=== PATIENT | female | born 1970 | race Caucasian/White ===

== ENCOUNTER 2019-01-16 17:00 | Emergency (ER) | payer SELFPAY | END 2019-01-16 18:43 | disposition home or self-care (01) | LOC: ERS 17:00 | DX: Z76.0 Encounter for issue of repeat prescription (principal); I10 Essential (primary) hypertension; J45.909 Unspecified asthma, uncomplicated; F32.9 Major depressive disorder, single episode, unspecified | CPT/HCPCS: 99281 ==

== ENCOUNTER 2019-02-12 06:38 | Inpatient (IN) | payer BC, SELFPAY ==
[2019-02-12] MEDS ORDERED: Fosphenytoin Sodium 500 mg/10 ml Vial ONE (08:01)
[2019-02-12] MEDS ORDERED: Fosphenytoin Sodium 100 mg/2 ml Vial ONE (08:01)
[2019-02-12 08:08] LABS: #Basophils 0.1 thou/uL (0.0-0.2); #Eosinphils 0.2 thou/uL (0.0-0.7); #Lymphocytes 1.1 thou/uL (1.20-3.40); #Monocytes 0.3 thou/uL (0.11-0.59); #Neutrophils 3.3 thou/uL (1.40-6.50); %Eosinophils 3.5 % (0.0-10.0); %Lymphocytes 22.5 % (21.0-51.0); %Monocytes 5.4 % (0.0-10.0); %Neutrophils 67.6 % (42.0-75.0); Hemoglobin 12.5 g/dL (12.0-16.0); Mean Corpuscular HGB CONC 33.7 g/dL (32.0-36.0); Mean Corpuscular Hemoglobin 30.3 pg (27.0-31.0); Mean Corpuscular Volume 90.1 fL (78.0-98.0); Mean Platelet Volume 8.6 fL (7.4-10.4); Platelet Count 238 thou/uL (130-400); RBC Distribution Width 11.5 % (11.5-14.5); Red Blood Cell (RBC) Count 4.14 mill/uL (4.20-5.40); White Blood Cell (WBC) Count 4.9 thou/uL (4.8-10.8)
[2019-02-12 08:22] LABS: Bilirubin Negative (Negative); Blood, Urine Negative (Negative); Clarity Clear (Clear); Glucose, Urine (Dipstick) Normal (Negative); Leukocyte Negative Leu/uL (Negative); Nitrite Negative (Negative); Protein, Urine (Dipstick) 10 mg/dL (Neg-Trace); Urobilinogen Normal mg/dL (Less than 2)
[2019-02-12 08:26] LABS: Pregnancy Test - Urine (BHCG) Negative (Negative); Pregu Control Background? CLEAR/WHITE (CLR/WHITE); Pregu Control Bar Appear? YES (CONTROL BAR); Specific Gravity 1.018 (1.002-1.036)
[2019-02-12 08:29] LABS: Amphetamine Not Detected (NotDetected); Barbiturates Screen Not Detected (NotDetected); Benzodiazepine Screen Not Detected (NotDetected); Cocaine Metabolite Screen Not Detected (NotDetected); Medtox Control Line Valid? VALID (VALID); Medtox Reader # READER 4; Methadone Not Detected (NotDetected); Methamphetamine Not Detected (NotDetected); Opiate Screen Not Detected (NotDetected); Oxycodone Screen Not Detected (NotDetected); Phencyclidine (PCP) Not Detected (NotDetected); THC/Cannabinoid Screen Not Detected (NotDetected); Tricyclic Screen Not Detected (NotDetected)
[2019-02-12 09:01] LABS: ALT (SGPT) 10 U/L (8-55); AST (SGOT) 20 U/L (5-34); Acetaminophen Less than 6.0 mcg/mL (10.0-30.0); Albumin 4.8 g/dL (3.5-5.0); Alcohol Less than 10 mg/dL (Less than 10); Alkaline Phosphatase 83 U/L (40-110); Anion Gap 12 mmol/L (10-20); BUN (Urea Nitrogen) 14 mg/dL (7.0-18.7); Bilirubin, Total 0.2 mg/dL (0.2-1.2); Calc. Creatinine Clearance 0 mL/min (70-130); Calcium 10.7 mg/dL (7.8-10.44); Carbon Dioxide 32 mmol/L (22-29); Chloride 99 mmol/L (98-107); Estimated GFR-MDRD 44; Globulin 3.7 g/dL (2.4-3.5); Glucose 119 mg/dL (70-105); Potassium 4.2 mmol/L (3.5-5.1); Protein, Total 8.5 g/dL (6.0-8.3); Salicylate Less than 8.0 mg/dL (15.0-30.0); Sodium 139 mmol/L (136-145)
[2019-02-12] MEDS ORDERED: Lorazepam 2 MG/ML VIAL ONE ×2 (09:58→13:13)
[2019-02-12] MEDS ORDERED: Propofol 1,000 MG/100 ML VIAL IV ONE (10:02)
[2019-02-12] MEDS ORDERED: Midazolam HCl 5 mg/ml Vial ONE (10:02)
[2019-02-12] MEDS ORDERED: Succinylcholine Chloride 20 MG/ML 10 ml SYRINGE FS ONE ×2 (10:02→10:11)
[2019-02-12] MEDS ORDERED: Rocuronium Bromide 10 MG/ML (10ML VIAL) ONE (10:14)
--- NOTE | 2019-02-12 10:39 | RAD ---
XR Chest 1 View HISTORY: Respiratory failure COMPARISON: 04/05/2009 FINDINGS: There is an endotracheal tube with tip just below the level of the clavicular heads. A naso gastric tube for nutrition consistent with with tip excluded from film. The heart size is normal. The lungs are well expanded without focal areas of consolidation, pneumothorax or pleural effusions.
--- NOTE | 2019-02-12 11:02 | CT ---
CT Brain WO Con: 02/12/2019 9:22 AM CLINICAL HISTORY: Seizure. COMPARISON: None. FINDINGS: Hemorrhage: None. Ventricular system: Normal in size and morphology for the patient's age. Cerebral parenchyma: Normal Midline shift: None. Mass: No mass effect. Calvarium: Normal. Visualized Paranasal sinuses: Clear. IMPRESSION: No acute intracranial abnormalities.
[2019-02-12 12:08] LABS: Actual Bicarbonate (HCO3a) 25.5 mEq/L (22-28); Analyzer IN Cardio ER; Base Excess (BEa) -0.6 mEq/L (-2.0 to +3.0); CO2 Tension 47.6 mmHg (35.0-45.0); Calcium, Ionized 1.19 mmol/L (1.12-1.30); Hemoglobin (Hb) 12.9 g/dL (12.0-16.0); O2 Tension (PaO2) 68.9 mmHg (80.0-100.0); Potassium - ABG Lab 3.26 mmol/L (3.70-5.30); pH, Arterial 7.35 (7.35-7.45)
[2019-02-12 12:09] LABS: Puncture Site RRA
[2019-02-12 13:09] LABS: Troponin I 0.028 ng/mL (< 0.028)
[2019-02-12] MEDS: Lactated Ringer's 1,000 ML IV SCH (14:05)
[2019-02-12] MEDS ORDERED: Ventilator Sedation Protocol 1 EACH FS SCH (14:38)
[2019-02-12] MEDS ORDERED: SYSTANE 3.5 GM TUBE EA EYE PRN (14:38)
[2019-02-12] MEDS ORDERED: Propofol BOLUS 1,000 MG/100 ML VIAL IV PRN (14:53)
[2019-02-12] MEDS ORDERED: fentaNYL Citrate/PF 2,000 MCG in Sodium Chloride 0.9% 60 ML IV SCH (14:53)
[2019-02-12] MEDS ORDERED: Lorazepam 2 MG/ML VIAL SLOW IVP PRN ×2 (14:53→16:29)
[2019-02-12] MEDS ORDERED: Propofol 1,000 MG/100 ML VIAL IV PRN (14:53)
[2019-02-12] MEDS ORDERED: Fentanyl BOLUS 250 ML IVPB PRN (14:53)
[2019-02-12] MEDS ORDERED: Morphine 2 MG/ML SYRINGE SLOW IVP PRN (14:53)
[2019-02-12] MEDS ORDERED: DISCONTINUE PREVIOUS NARCOTIC PAIN MEDICATIONS AND BENZODIAZEPINES FS SCH (14:53)
--- NOTE | 2019-02-12 15:36 | PDOC.FPRHP ---
- History of Present Illness Chief Complaint: Seizures History of Present Illness: 48 year old patient currently intubated, although sedation seems to have worn off as patient alert and able to answer some questions with a nod of the head. Most history obtained from patient's mother and son. Patient lives with a disabled friend. Per patient's mother, she went to the refrigerator around 5:00 AM to get something for her friend. The friend noted she was gone for an unusual amount of time, so she made her way to the kitchen and saw the patient on the floor with the refrigerator open. She called EMS who took patient to ED. ED states they witnessed two tonic clonic seizures, one at 7:30 AM and the other closer to 10:00 AM. ED physician states that the patient had a prolonged postictal state, so intubation was performed. Mother states that patient has had two seizures previously, one at 6 year of age and the other in 1989. Both times, patient was worked up in ED and sent home. Patient has never seen a neurologist or been on medications for seizures. Patient does have a remote history of opiate abuse. She is on suboxone currently. She had a bunion surgery two weeks ago and was prescribed opiates for pain control but opted not to take them given her history. Patient's mother states that patient has a thyroid issue, although she is not sure if its overactive or under active thyroid. She is also on a fluid pill and BP medication. She has asthma which is mostly exacerbated by allergies. During the interview, patient was able to shake her head yes when I asked if she was in pain. I was eventually able to ascertain that the source of her pain was in her chest. A stat EKG was ordered. No evidence of STEMI. Troponins have been negative x2. Patient became more agitated and sedation was titrated appropriately. I called patient's PCP, Dr. Wilson. Her staff was able to relay the medications she has been taking as of 01/21/2019 which was her last office visit. She is taking albuterol, qvar, Vit D, gabapentin, prair, cozar, and levothyroxine. They state that she had lamictal and prozac listed as historical drugs, but these have not been prescribed by Dr. Wilson. ED Course: Patient given ativan and phenobarbital in ED. She was then intubated and sedated. - Allergies/Adverse Reactions Allergies Allergy/AdvReac Type Severity Reaction Status Date / Time Penicillins Allergy Severe Hives Verified 02/12/19 17:21 - Home Medications Medication Instructions Recorded Confirmed Type ALButerol Sulfate [Ventolin] 3 ml NEB Q6HR PRN 02/13/19 02/13/19 History Albuterol Sulfate [Proair HFA] 2 puff INH Q6HR PRN 02/13/19 02/13/19 History Beclomethasone Dipropionate [Qvar 160 mcg IH BID 02/13/19 02/13/19 History Redihaler] Ergocalciferol (Vitamin D2) 50,000 unit PO Q7DAYS 02/13/19 02/13/19 History [Vitamin D2] Gabapentin 1,200 mg PO TID 02/13/19 02/13/19 History Levothyroxine Sodium 300 mcg PO DAILY 02/13/19 02/13/19 History Losartan Potassium [Cozaar] 100 mg PO DAILY 02/13/19 02/13/19 History Comments: Med list obtained from PCP, Dr. Wilson - History PMHx: HTN, Hypothyroidism, Asthma, Neuropathy PSHx: Right bunion surgery, bilateral knee surgery, appendectomy, tonsillectomy , hysterectomy, cholecystectomy, heart surgery (uncertain what kind; per mother had to do with an artery in her 20's) FHx: Father with DM Social: Patient lives with a disabled friend. She has a history of opiate abuse and is on suboxone. - Review of Systems ROS unobtainable: due to endotracheal tube - Vital signs BP: 147/102 HR: 112 RR: 28 Tmax: 100.1F Pox: 100% on MV with FiO2 60 Wt: 109 kg - Physical Exam -Constitutional: Alert and able to nod head yes/no in response to questions HEENT: PERRLA, EOMI, MMM -Heart: Tachycardia Lungs: CTAB -Lungs: Sedated and on ventilator Abdomen: soft, non-tender Skin: capillary refill <2 seconds Heme/Lymphatic: no unusual bruising or bleeding, no purpura, no petechia -Psychiatric: Unable to assess FMR H&P: Results - Labs Result Diagrams: 02/13/19 04:15 02/13/19 04:15 Lab results: WBC 4.9 thou/uL (4.8-10.8) 02/12/19 07:44 Hgb 12.5 g/dL (12.0-16.0) 02/12/19 07:44 Hct 37.3 % (36.0-47.0) 02/12/19 07:44 MCV 90.1 fL (78.0-98.0) 02/12/19 07:44 Plt Count 238 thou/uL (130-400) 02/12/19 07:44 Neutrophils % 67.6 % (42.0-75.0) 02/12/19 07:44 ABG pH 7.35 (7.35-7.45) 02/12/19 10:55 ABG pCO2 47.6 mmHg (35.0-45.0) H 02/12/19 10:55 ABG pO2 68.9 mmHg (80.0-100.0) L 02/12/19 10:55 Sodium 139 mmol/L (136-145) 02/12/19 07:44 Potassium 4.2 mmol/L (3.5-5.1) 02/12/19 07:44 Chloride 99 mmol/L (98-107) 02/12/19 07:44 Carbon Dioxide 32 mmol/L (22-29) H 02/12/19 07:44 BUN 14 mg/dL (7.0-18.7) 02/12/19 07:44 Creatinine 1.28 mg/dL (0.6-1.1) H 02/12/19 07:44 Glucose 119 mg/dL (70-105) H 02/12/19 07:44 Lactic Acid 2.0 mmol/L (0.5-2.2) 02/12/19 07:44 Calcium 10.7 mg/dL (7.8-10.44) H 02/12/19 07:44 Total Bilirubin 0.2 mg/dL (0.2-1.2) 02/12/19 07:44 AST 20 U/L (5-34) 02/12/19 07:44 ALT 10 U/L (8-55) 02/12/19 07:44 Alkaline Phosphatase 83 U/L (40-110) 02/12/19 07:44 Serum Total Protein 8.5 g/dL (6.0-8.3) H 02/12/19 07:44 Albumin 4.8 g/dL (3.5-5.0) 02/12/19 07:44 Urine Ketones Negative mg/dL (Negative) 02/12/19 08:05 Urine Blood Negative (Negative) 02/12/19 08:05 Urine Nitrite Negative (Negative) 02/12/19 08:05 Ur Leukocyte Esterase Negative Brandon/uL (Negative) 02/12/19 08:05 FMR H&P: A/P - Problem List (1) Seizure Current Visit: Yes Status: Acute Code(s): R56.9 - UNSPECIFIED CONVULSIONS (2) HTN (hypertension) Current Visit: Yes Status: Acute Code(s): I10 - ESSENTIAL (PRIMARY) HYPERTENSION (3) Hypothyroid Current Visit: Yes Status: Acute Code(s): E03.9 - HYPOTHYROIDISM, UNSPECIFIED (4) Asthma Current Visit: Yes Status: Acute Code(s): J45.909 - UNSPECIFIED ASTHMA, UNCOMPLICATED (5) Neuropathy Current Visit: Yes Status: Acute Code(s): G62.9 - POLYNEUROPATHY, UNSPECIFIED (6) At risk for abuse of opiates Current Visit: Yes Status: Acute Code(s): Z91.89 - OT PERSONAL RISK FACTORS , NOT ELSEWHERE CLASSIFIED - Plan 48 year old female found down at 5:00 AM this morning and noted to have several witnessed seizures with the last seizure resulting in a prolonged post-ictal state requiring intubation. Seizure-like activity - Patient with witnessed seizures down in ED. Prolonged post-ictal state requiring intubation, per ED physician. - Patient's sedation wore off down in ED and she was able to communicate with me and does not appear to be still seizing - Ativan PRN for seizures - Increased risk for aspiration pneumonia; no current evidence on CXR or physical exam - Seizure precautions - Will start Keppra - Neurology consulted; appreciate recs - Pulmonology consulted; appreciate recs - EEG ordered to assess for ongoing seizure activity - Questionable past history of seizures; two noted in distant past but mother reports patient never saw neurology and was never on medication; PCP, Dr. Wilson has on record that patient states she has been on lamictal in the past. Dr. Wilson is not prescribing that medication, however, so it is unclear if patient has been getting lamictal. - Prolactin mildly elevated at 26 - Lactic acid 2.0 Acute hypoxic respiratory failure - Satting 93% on MV with FIO2 60 - Wean MV as tolerated - ABG obtained after intubation; pH 7.35, pCO2 45, pO2 69 - CXR with no evidence of pneumonia, pneumonitis, fluid overload - Associated with tachycardia; concern for PE. Given low Well's score, will obtain D-dimer first. Chest pain - Patient able to communicate chest pain - Stat EKG showed sinus tachycardia, no STEMI - Troponin neg x2, trending - Given patient found down and has tachycardia, concern for PE. Will order D- dimer and if elevated consider CTA given GFR >30 but <45. Can also consider bilateral lower extremity dopplers to start. If troponin trends up in addition to elevated D-dimer and patient continues to be tachycardic and tachypneic, then would have a low threshold for ordering CTA HTN - Monitor BP - Start on Cozaar 100mg daily when tolerating PO Hypothyroidism - Start back on levothyroxine 300 mcg when tolerating PO - TSH WNL Asthma - Appears well controlled per patient's mother - Patient on qvar and proair per PCP; will restart qvar Opiate abuse history - On suboxone - Will check [place] BOOK REPAIRER Aware to confirm DVT PPX: SCD's and lovenox Code Status: Full Dispo: Admit to CCU. Pulm and Neurology consulted. FMR H&P: Upper Level - Plan Date/Time: 02/12/19 4641 I, [], have evaluated this patient and agree with findings/plan as outlined by university internship resident. Pertinent changes/additions are listed here. Addendum - Attending - Attending Attestation Date/Time: 02/12/19 7067 I personally evaluated the patient and discussed the management with Dr. Bob I agree with the History, Examination, Assessment and Plan documented above with any addition or exceptions noted below - 48 yo female with h/o hypothyroidism, asthma, HTN, and remote h/o seizure d/o presents after being found down by roommate. In ER patient had apparent sezure x 2 and was subsequently intubated for airway protection. Patient also on suboxone therapy due to h/o narcotic abuse in past. PMH?/PSH/Meds/SH reviewed and agree with resident's documentation. Afebrile VSS. Exam repeated by me and agree with resident's findings. Lab: WBC=4.9, H/H=12.5/37.3, Zg=687, K=4.2, Cl=99, CO2=32, BUN/Cr=14/1.28, UDS- negative, U/A- negative, CT brain-negative . A/P: 1) Seizures- Admit to ICU, Will load with Keppra. Obtain EEG. Consult neurology, 2) Hypothyroidism- continue synthroid, 3) HTN- will monitor BP and add meds as needed.
[2019-02-12 16:40] LABS: Hemoglobin A1c 5.8 % (4.0-6.0)
[2019-02-12] MEDS ORDERED: Doxycycline 100 MG CAP PO SCH (16:45)
[2019-02-12] MEDS ORDERED: Cefdinir 300 MG CAP PO SCH (16:45)
[2019-02-12] MEDS ORDERED: Buprenorphine 8mg/Naloxone 2mg per 1 FILM PO SCH (16:45)
[2019-02-12 16:57] LABS: Troponin I 0.169 ng/mL (< 0.028)
[2019-02-12 19:25] LABS: Troponin I 0.344 ng/mL (< 0.028)
[2019-02-12] MEDS ORDERED: Acetaminophen 325 MG TAB PO PRN (20:04)
[2019-02-12] MEDS ORDERED: Gabapentin 300 MG CAP PO SCH (21:00)
--- NOTE | 2019-02-12 21:06 | CON ---
DATE OF CONSULTATION: 02/12/2019 SERVICE: Pulmonary Medicine. REASON FOR CONSULTATION: ICU patient. HISTORY OF PRESENT ILLNESS: The patient is a 48-year-old white female with past medical history significant for remote abuse of narcotics. She has been on Suboxone for the past 10 years. She has been afraid to wean that any further. Either way, she has been clean off the street drugs for a period time. She previously abused hydrocodone. She had a recent bunionectomy. After this procedure, she was actually prescribed some narcotics. She took them for a period of 3 days, and turned the rest of the prescription back into her pain physician. Either way, she was in her usual state of health when she had abrupt onset of shaking episodes. She ended up having what was described as tonoclonic seizures, but she was able to interestingly follow commands throughout these events. We actually witnessed some of the shaking events on an EEG. With this, there was no obvious epileptiform activity. She cannot provide any additional elements of the history because she had been under the influence of sedation on the ventilator. She is able to follow some simple commands. She can wiggle her toes, put her thumbs up in the air, open and close her eyes, lift her head up off the bed on command. PAST MEDICAL HISTORY: 1. Seizure disorder, remote, not currently taking any medications. 2. History of opiate addiction. 3. Hypertension. 4. Asthma. PAST SURGICAL HISTORY: 1. Spinal stimulator surgery. 2. Appendectomy. 3. Hysterectomy. 4. Thoracotomy. 5. Bunionectomy of the right lower extremity. FAMILY HISTORY: Noncontributory. SOCIAL HISTORY: Negative for alcohol, tobacco, or illicit drug use currently. She has no exposures known to mom of chemicals, dust asbestos, or tuberculosis. ALLERGIES: PENICILLIN. MEDICATIONS: List of her inpatient medications was reviewed. No specific updates were made at this time. REVIEW OF SYSTEMS: The patient cannot provide review of systems because she is currently intubated and sedated. PHYSICAL EXAMINATION: VITAL SIGNS: Afebrile. She does have a current temperature of 100.1. Pulse 123, blood pressure 121/78, respirations 18, saturation 95% on 27% FiO2 and a PEEP of 5. GENERAL: The patient is intubated and sedated. HEENT: Normocephalic and atraumatic. Sclerae are white. Conjunctivae are pink. Oral mucosa is moist without lesions. Pupils are equal, round, and reactive. LUNGS: Wonderful air entry with no prolonged expiratory phase or wheezing present. There is no prolonged expiratory phase on mechanical ventilator waveform. HEART: Tachycardic. Regular. ABDOMEN: Soft, nontender, and nondistended. Bowel sounds are positive. MUSCULOSKELETAL: No cyanosis or clubbing. No pitting in the bilateral lower extremities. NEUROLOGIC: Grossly nonfocal. LABORATORY DATA: WBC 4.9, hemoglobin 12.5, platelets 238,000. PH 7.35, pCO2 47 , PO2 69, corresponding to a saturation of 93%. This is when she was on 60% FiO2. Creatinine 1.28. Basic metabolic profile and liver function studies are otherwise unremarkable. Calcium is 10.7. Prolactin 26, which comfortably falls within the upper limits of normal. TSH 1.3, troponin 0.028. Lactate 2.0. Urinalysis is unremarkable, test is negative. Urine drug screen is completely unremarkable. Acetaminophen, salicylates, and alcohol are negative. IMAGING DATA: 1. CT of the brain demonstrates no acute intracranial abnormality. 2. Chest x-ray demonstrates endotracheal tube is in good position, roughly 2 cm above the level of the richard. There is an enteric catheter that courses midline, but I cannot see the tip of it. Spinal stimulator is noted. No acute cardiopulmonary process is otherwise appreciated. ASSESSMENT: 1. Spell of undetermined etiology. 2. Acute hypoxic respiratory failure. 3. Cellulitis. 4. History of opiate dependence and abuse, remote. 5. Severe sepsis. DISCUSSION AND PLAN: I will put on some antibiotics directed at skin gabby. This will cover both strep and staph. We will give her a sedation holiday. If she meets criteria, her mentation is intact, extubation will be considered. I agree with empiric antiepileptic drugs while the dust settles for the time being. Pulmonary/Critical Care will continue to follow along while the patient remains in this location. CRITICAL CARE TIME: 30 minutes. Job ID: [id number] [facility]
[2019-02-12] MEDS: Ondansetron PF 4 MG/2 ML Vial IVP PRN (21:13)
[2019-02-12 23:24] LABS: Critical Call Chem Troponin I RESULT DECREASING; Troponin I 0.308 ng/mL (< 0.028)
[2019-02-12] MEDS ORDERED: Acetaminophen 650 MG Suppository PR PRN (23:51)
[2019-02-13] MEDS: Lactated Ringer's 1,000 ML IV SCH ×4 (03:32→21:22)
[2019-02-13 04:55] LABS: #Lymphocytes 1.1 thou/uL (1.20-3.40); #Monocytes 0.7 thou/uL (0.11-0.59); #Neutrophils 12.8 thou/uL (1.40-6.50); %Basophils 0.3 % (0.0-1.0); %Eosinophils 0.2 % (0.0-10.0); %Lymphocytes 7.3 % (21.0-51.0); %Monocytes 4.5 % (0.0-10.0); %Neutrophils 87.7 % (42.0-75.0); Hemoglobin 10.4 g/dL (12.0-16.0); Mean Corpuscular HGB CONC 33.7 g/dL (32.0-36.0); Mean Corpuscular Hemoglobin 30.5 pg (27.0-31.0); Mean Corpuscular Volume 90.4 fL (78.0-98.0); Mean Platelet Volume 7.4 fL (7.4-10.4); Platelet Count 252 thou/uL (130-400); RBC Distribution Width 11.6 % (11.5-14.5); Red Blood Cell (RBC) Count 3.41 mill/uL (4.20-5.40); White Blood Cell (WBC) Count 14.6 thou/uL (4.8-10.8)
[2019-02-13 05:16] LABS: ALT (SGPT) 12 U/L (8-55); AST (SGOT) 20 U/L (5-34); Albumin 3.6 g/dL (3.5-5.0); Alkaline Phosphatase 62 U/L (40-110); Anion Gap 10 mmol/L (10-20); BUN (Urea Nitrogen) 12 mg/dL (7.0-18.7); Bilirubin, Total 0.4 mg/dL (0.2-1.2); Calc. Creatinine Clearance 115 mL/min (70-130); Calcium 8.9 mg/dL (7.8-10.44); Carbon Dioxide 30 mmol/L (22-29); Chloride 99 mmol/L (98-107); Estimated GFR-MDRD 58; Globulin 2.8 g/dL (2.4-3.5); Glucose 114 mg/dL (70-105); Potassium 4.1 mmol/L (3.5-5.1); Protein, Total 6.4 g/dL (6.0-8.3); Sodium 135 mmol/L (136-145)
[2019-02-13 05:37] VITALS: BMI 41.4
--- NOTE | 2019-02-13 06:57 | PDOC.FM ---
- Subjective Subjective: Ms. Orantes has nausea and is vomiting this morning. Nurse giving antiemetic med. She tolerated extubation well and VSS. Cellulitis greatly improved. - Objective MAR Reviewed: Yes Vital Signs & Weight: Vital Signs (12 hours) Temp Pulse Ox 02/13/19 04:00 99.7 F H 02/13/19 00:12 92 L 02/12/19 23:00 101.1 F H 02/12/19 21:00 99.7 F H 02/12/19 20:00 101.6 F H 97 Weight Weight 110.1 kg Most Recent Monitor Data Heart Rate from ECG 80 NIBP 96/62 NIBP BP-Mean 73 Respiration from ECG 13 SpO2 99 I&O: 02/11/19 02/12/19 02/13/19 06:59 06:59 06:59 Intake Total 1913.7 Output Total 1600 Balance 313.7 Result Diagrams: 02/13/19 04:15 02/13/19 04:15 Phys Exam - Physical Examination Constitutional: NAD exam limited due to vomiting Respiratory: clear to auscultation bilateral Cardiovascular: RRR Gastrointestinal: soft Musculoskeletal: no edema no erythema of RLE, surgical incision healing well Neurological: moves all 4 limbs Psychiatric: normal affect Skin: normal turgor Dx/Plan (1) Cellulitis Code(s): L03.90 - CELLULITIS, UNSPECIFIED Status: Acute (2) Hypothyroid Code(s): E03.9 - HYPOTHYROIDISM, UNSPECIFIED Status: Acute (3) Neuropathy Code(s): G62.9 - POLYNEUROPATHY, UNSPECIFIED Status: Acute - Plan Plan: 48 year old female found down Sepsis 2/2 Cellulitis of RLE, improving - dramatic response to antibiotics. Received doxy and cefdninir. Cefdinir continued (02/12) DVT - d-dimer 9 - LE doppler showed nonocclusive DVT of R common femoral vein and prox and mid portions of R femoral vein - will start therapeutic lovenox - Has hx of prior DVT 20 years ago after period of immobility Concern for seizure like activity now not thought to be seizures - Patient with witnessed seizures down in ED. Prolonged post-ictal state requiring intubation, per ED physician. - Pulmonology consulted; appreciate recs - Questionable past history of seizures; two noted in distant past but mother reports patient never saw neurology and was never on medication; has been on lamictal but this reportedly for mood adjunct - was intubated for airway protection and extubated same day 02/12 Chest pain, resolved - EKG showed sinus tachycardia, no STEMI - Troponin neg HTN - Monitor BP - Patient denies taking prescribed cozaar Hypothyroidism - Continue home levothyroxine - TSH WNL Asthma - Appears well controlled per patient's mother - Patient on qvar and proair per PCP; will restart Opiate abuse history - On suboxone, continue DVT PPX: SCD's and lovenox Code Status: Full Dispo: Patient being transferred to floor. Continue oral abx and starting treatment for DVT. Addendum - Attending - Attending Attestation Date/Time: 02/13/19 1212 I personally evaluated the patient and discussed the management with Dr. Roland I agree with the History, Examination, Assessment and Plan documented above with any addition or exceptions noted below. Patient alert remote history of prior DVT , US with evidence for DVT will initiate therapeutic lovenox . Appreciate Pulmonary Critical recommendations. Patient will need to continue her current suboxone dose.
[2019-02-13] MEDS: Ondansetron PF 4 MG/2 ML Vial IVP PRN ×2 (07:16→21:15)
[2019-02-13] MEDS ORDERED: Albuterol Sulfate 2.5 mg/3 ml Neb NEB PRN (08:17)
[2019-02-13] MEDS ORDERED: PROVENTIL INHALER 6.7 G (200 INHALATIONS) INH PRN (08:17)
[2019-02-13] MEDS ORDERED: Levothyroxine 150 MCG TAB PO SCH (08:45)
[2019-02-13] MEDS ORDERED: Ergocalciferol 1.25 MG(50,000 UNITS) CAP PO SCH (09:00)
[2019-02-13] MEDS ORDERED: Enoxaparin Sodium 40 MG/0.4 ML SYRINGE SC SCH (09:00)
[2019-02-13] MEDS ORDERED: Buprenorphine 8mg/Naloxone 2mg per 1 FILM PO SCH (09:00)
[2019-02-13] MEDS ORDERED: Doxycycline 100 MG CAP PO SCH (09:00)
[2019-02-13] MEDS ORDERED: Promethazine 25 MG TAB PO PRN (09:04)
[2019-02-13] MEDS ORDERED: Promethazine HCl 25 MG/ML VIAL IM SCH (09:15)
[2019-02-13] MEDS: Cefdinir 300 MG CAP PO SCH ×2 (09:16→21:30)
--- NOTE | 2019-02-13 09:40 | PRG ---
DATE OF SERVICE: 02/13/2019 SERVICE: Pulmonary Medicine. INTERVAL HISTORY: The patient is doing absolutely outstanding from respiratory standpoint. She tolerated extubation just fine yesterday. There was no events overnight. She is a little bit groggy this morning, but otherwise, she is returning to her usual state of health slowly. Her hemodynamics have stabilized. Her heart rate is coming down, and her saturations are fine. She is on a little bit of oxygen still but otherwise, there are no interval change to her condition. PHYSICAL EXAMINATION: VITAL SIGNS: Afebrile currently with a T-max overnight of 101.6, pulse 92, blood pressure 157/106, respirations 19, and saturation 99%, currently on room air. GENERAL: The patient is awake and alert, in no apparent distress. LUNGS: Wonderful air entry. Rhonchi are present. No prolonged expiratory phase or wheezing appreciated. HEART: Normal rate and regular. ABDOMEN: Soft, nontender, and nondistended. Bowel sounds are positive. MUSCULOSKELETAL: No cyanosis or clubbing. No pitting in the bilateral lower extremities. NEUROLOGIC: Grossly nonfocal. LABORATORY DATA: WBC 14.6, hemoglobin 10.4, and platelets 252,000. D-dimer 9. A pH 7.35, pCO2 of 47, and PO2 of 68. Basic metabolic profile is unremarkable this morning. Liver function studies are normal. Troponin is downtrending to 0.308, procalcitonin 1.35. Hemoglobin A1c 5.8. Urinalysis is unremarkable. Urine drug screen is negative. ASSESSMENT: 1. Acute hypoxic respiratory failure, resolved. 2. Cellulitis of the right lower extremity, much improved. 3. Opiate dependence and abuse, remote. 4. Severe sepsis. 5. Suspected rigors that were treated as status epilepticus. DISCUSSION PLAN: The patient is doing wonderful from respiratory standpoint. At this point, she is stable for transition to the medical unit. I am going to discontinue the doxycycline as the culprit is likely Streptococcus species given how quickly it has regressed. IM dose of Phenergan will be provided and we will give her p.r.n. Phenergan as she is having a little bit of nausea. This may have been an effect of the doxycycline. The D-dimer is elevated. We will do an ultrasound of the right lower extremity to make certain that she does not have a DVT there. That being said, the likelihood for dealing with a PE that precipitated this presentation is quite low. Critical Care will follow for the time being. Job ID: [id number]
--- NOTE | 2019-02-13 10:55 | ULT ---
ULTRASOUND DOPPLER DUPLEX VENOUS BILATERAL LOWER EXTREMITIES: DATE: 02/13/2019 HISTORY: 48-year-old female with elevated d-dimer and history of DVT in right lower extremity. According to the rooming house operator, the "nurse and the doctor were in the room during the exam and were inf ormed of findings" TECHNIQUE: Grayscale, color-flow, and spectral analysis, of the bilateral common femoral, profunda femoral, grea ter saphenous, femoral, popliteal, and posterior tibial, veins. FINDINGS: Right: There is incomplete compressibility of the right common femoral vein, and the proximal and mid portio ns of the femoral vein. There is blood flow around the clot. No thrombosis of the right popliteal or posterior tibial veins. Left: There is no DVT in any of the veins of the left lower extremity.. IMPRESSION: Positive for nonocclusive deep venous thrombosis of right common femoral vein, and the proximal and m id portions of the right femoral vein.
[2019-02-13] MEDS ORDERED: Enoxaparin Sodium 80 MG/0.8 ML SYRINGE SC SCH (11:45)
[2019-02-13] MEDS: Gabapentin 300 MG CAP PO SCH ×3 (14:24→21:30)
[2019-02-13] MEDS: Mometasone 200 MCG HFA INHALER INH SCH (18:28)
[2019-02-13] MEDS ORDERED: Buprenorphine 8mg/Naloxone 2mg per 1 FILM SL SCH (21:00)
[2019-02-13] MEDS: lamoTRIgine 100 MG TAB PO SCH (21:30)
[2019-02-13] MEDS ORDERED: Promethazine HCl 12.5 MG in Sodium Chloride 0.9% 50 ML IVPB PRN (21:33)
[2019-02-13] MEDS: Enoxaparin Sodium 120 MG/0.8 ML SYRINGE SC SCH (23:07)
--- NOTE | 2019-02-14 | CON ---
DATE OF CONSULTATION: 02/13/2019 CONSULTING PHYSICIAN: Family Medicine Service. IMPRESSION: New onset seizure. PLAN: Continue Keppra 500 mg twice daily. HISTORY OF PRESENT ILLNESS: Ms. Orantes is a 48-year-old white female, who denies past history of any seizures. She presented with generalized tonoclonic seizures. Her CT scan of the brain was unremarkable. Her lab work was all unremarkable as well. Her tox screen was negative. Her EEG showed some generalized sharp and slow wave activity on one occasion during the study. She denies any use of cocaine, methamphetamines, or amphetamines. There is no history of head injuries, meningitis, encephalitis or concussions. PAST MEDICAL HISTORY: Otherwise unremarkable by her report. ALLERGIES: PENICILLIN. SOCIAL HISTORY: No tobacco or illicit drug use. FAMILY HISTORY: Noncontributory. REVIEW OF SYSTEMS: Ten-system review of systems is otherwise negative. PHYSICAL EXAMINATION: GENERAL: She is an overweight, middle-aged woman, lying in bed, in no acute distress. VITAL SIGNS: Stable. She is afebrile. Her EKG shows normal sinus rhythm. HEENT: Pupils equal and reactive. Conjunctivae clear. Oropharynx clear. Cranium, normocephalic and atraumatic. NECK: Supple. EXTREMITIES: No cyanosis, clubbing, or edema. NEUROLOGIC: She is alert and cooperative. Her speech is fluent and clear. Cranial nerves were intact. Motor exam showed equal strength. Sensation is intact to light touch. Gait was not tested. No abnormal movements were seen. SUMMARY: This is a middle-aged woman with new onset seizures. Her workup thus far has been unremarkable. I would continue the Keppra 500 mg twice daily. I will follow up with her in the office. Job ID: [id number]
[2019-02-14] MEDS: Cefdinir 300 MG CAP PO SCH ×2 (00:22→08:33)
[2019-02-14] MEDS: Gabapentin 300 MG CAP PO SCH ×3 (00:22→14:21)
[2019-02-14] MEDS: lamoTRIgine 100 MG TAB PO SCH (00:22)
[2019-02-14] MEDS ORDERED: Ibuprofen 600 MG TAB PO PRN (00:30)
[2019-02-14] MEDS: Lactated Ringer's 1,000 ML IV SCH (05:32)
[2019-02-14] MEDS ORDERED: Levothyroxine 150 MCG TAB PO SCH (06:00)
--- NOTE | 2019-02-14 06:30 | PDOC.FM ---
- Subjective Subjective: Pt states she is feeling better, but did not sleep well last night. She denies any CP, SOB. States her toe feels better, denies pain. - Objective MAR Reviewed: Yes Vital Signs & Weight: Vital Signs (12 hours) Temp Pulse Resp BP Pulse Ox 02/14/19 04:00 97.7 F 78 18 158/94 H 92 L 02/14/19 00:00 98.3 F 93 18 152/94 H 94 L 02/13/19 19:20 98.7 F 84 16 145/91 H 95 Weight Weight 110.762 kg Most Recent Monitor Data Heart Rate from ECG 94 NIBP 133/97 NIBP BP-Mean 109 Respiration from ECG 17 SpO2 94 I&O: 02/12/19 02/13/19 02/14/19 06:59 06:59 06:59 Intake Total 1913.7 651 Output Total 1600 755 Balance 313.7 -104 Result Diagrams: 02/13/19 04:15 02/13/19 04:15 Phys Exam - Physical Examination Constitutional: NAD HEENT: moist MMs, sclera anicteric Neck: no nodes, no JVD, supple Respiratory: no wheezing, no rales, no rhonchi, clear to auscultation bilateral Cardiovascular: RRR, no significant murmur, no rub Gastrointestinal: soft, non-tender, no distention, positive bowel sounds Musculoskeletal: pulses present R foot, surgical inicision healing, clean and dry, medial dorsal and distal Neurological: non-focal, moves all 4 limbs Psychiatric: normal affect, A&O x 3 Skin: no rash, normal turgor, cap refill <2 seconds Deviation from normal: slight erythema around surgical incision on R foot. Dx/Plan (1) Right femoral vein DVT Code(s): I82.411 - ACUTE EMBOLISM AND THROMBOSIS OF RIGHT FEMORAL VEIN Status : Acute (2) Asthma Code(s): J45.909 - UNSPECIFIED ASTHMA, UNCOMPLICATED Status: Acute (3) At risk for abuse of opiates Code(s): Z91.89 - OTH PERSONAL RISK FACTORS, NOT ELSEWHERE CLASSIFIED Status: Acute (4) HTN (hypertension) Code(s): I10 - ESSENTIAL (PRIMARY) HYPERTENSION Status: Acute (5) Hypothyroid Code(s): E03.9 - HYPOTHYROIDISM, UNSPECIFIED Status: Acute - Plan Plan: 48 year old female found down 1. Sepsis 2/2 Cellulitis of RLE, improving - dramatic response to antibiotics. Received doxy and cefdninir. Cefdinir continued (02/12) 2. DVT - d-dimer 9 - LE doppler showed nonocclusive DVT of R common femoral vein and prox and mid portions of R femoral vein - on therapeutic lovenox - Has hx of prior DVT 20 years ago after period of immobility 3. Concern for seizure like activity now not thought to be seizures - Patient with witnessed seizures down in ED. Prolonged post-ictal state requiring intubation, per ED physician. - Pulmonology consulted; appreciate recs - Questionable past history of seizures; two noted in distant past but mother reports patient never saw neurology and was never on medication; has been on lamictal but this reportedly for mood adjunct - was intubated for airway protection and extubated same day 02/12 4. Chest pain, resolved - EKG showed sinus tachycardia, no STEMI - Troponin neg 5. HTN - Monitor BP - Patient denies taking prescribed cozaar 6. Hypothyroidism - Continue home levothyroxine - TSH WNL 7. Asthma - Appears well controlled per patient's mother - Patient on qvar and proair per PCP; will restart 8. Opiate abuse history - On suboxone, continue DVT PPX: SCD's and lovenox Code Status: Full Dispo: Patient stable on floor. Continue oral abx and treatment for DVT.
[2019-02-14] MEDS: Mometasone 200 MCG HFA INHALER INH SCH (07:39)
[2019-02-14] MEDS ORDERED: levETIRAcetam 500 MG TAB PO SCH ×2 (10:15→21:00)
[2019-02-14] MEDS: Enoxaparin Sodium 120 MG/0.8 ML SYRINGE SC SCH (11:07)
--- NOTE | 2019-02-14 12:58 | PRG ---
DATE OF SERVICE: 02/14/2019 SERVICE: Pulmonary Medicine. INTERVAL HISTORY: The patient indicates that she is breathing comfortably and has no complaints of chest discomfort, fevers, or chills. Otherwise, there has been no interval change to her condition. Her blood pressure is firmed up very nicely. Her heart rate is starting to trend downward. Her appetite is back, and she was able to keep food down this morning without difficulties. PHYSICAL EXAMINATION: VITAL SIGNS: Afebrile, pulse 79, blood pressure 149/97, respirations 18, and saturation 98% on room air. GENERAL: The patient is awake and alert, in no apparent distress. LUNGS: Very good air entry with no prolonged expiratory phase or wheezing present. HEART: Normal rate, regular. ABDOMEN: Soft, nontender, and nondistended. Bowel sounds are positive. MUSCULOSKELETAL: No cyanosis or clubbing. There is no pitting in the bilateral lower extremities. The right lower extremity looks clean, dry, and intact. The erythema has still resolved. IMAGING: Ultrasound of the bilateral lower extremities demonstrates nonocclusive DVT of the right common femoral vein and the proximal midportion of the right femoral vein. ASSESSMENT: 1. Severe sepsis, resolved. 2. Cellulitis of the right lower extremity, resolving. 3. Acute hypoxic respiratory failure, resolved. 4. Deep venous thrombosis of the right lower extremity. 5. Rigors, resolved. DISCUSSION AND PLAN: The patient will require 6 months of anticoagulation for DVT. At this point, pursuing a CTA of the chest is not necessary as it will not change our course or duration of therapy. Since she is tolerating p.o., IV fluids will be interrupted. From my perspective, she is a candidate for discharge from the hospital as early as today. Lovenox will be interrupted, and we will initiate Eliquis. Once again, this will need to be continued for 6 months. Job ID: [id number]
--- NOTE | 2019-02-14 13:49 | PQF ---
DATE: 02-14-19 ATTN: DR. SARAHI HURST Please exercise your independent, professional judgment in responding to the clarification form. Clinical indicators are provided on the bottom of this form for your review Please check appropriate box(s) to clarify if the following diagnosis has been ruled in or ruled out: SEVERE SEPSIS [ ] Resolved In addition, please specify: Present on Admission (POA): [ * ] Yes For continuity of documentation, please document condition throughout progress notes and discharge summary. Thank You. CLINICAL INDICATORS - SIGNS / SYMPTOMS / LABS / RESULTS AND LOCATION IN MR: H&P 02-12-19: SEIZURE, HTN, HYPOTHYROID, ASTHMA, NEUROPATHY, AT RISK FOR ABUSE OF OPIATES, ACUTE HYPOXIC RESPIRATORY FAILURE CONSULT NOTE DR. MARINELLI 02-12-19: SPELL OF UNDETERMINED ETIOLOGY, ACUTE HYPOXIC RESPIRATORY FAILURE, CELLULITIS, SEVERE SEPSIS PN DR. MEZA 02-13-19: SEPSIS 2/2 CELLULITIS OF RLE CONSULT DR. MARINELLI 02-13-19: ACUTE HYPOXIC RESPIRATORY FAILURE, CELLULITIS OF THE RLE, SEVERE SEPSIS WBC: 02-12-19: 4.9 02-13-19: 14.6 TEMP: 02-12-19: 100.1, 100.1, 100.8, 100.8, 101.6, 101.1 PULSE: 02-12-19: 123, 121 BP: 02-12-19: 83/38 RR: 02-12-19: 28, 28 RISK FACTORS / RESULTS AND LOCATION IN MR: PN DR. MEZA 02-13-19: SEPSIS 2/2 CELLULITIS OF RLE TREATMENTS / RESULTS AND LOCATION IN MR: MAR: 02-13-19: OMNICEF PO MAR: 02-13-19: LR IVF (This form is maintained as a part of the permanent medical record) 2014 [employer]. All Rights Reserved [email or web address] [email or web address] Office: [phone] [facility]
--- NOTE | 2019-02-14 14:52 | EEG ---
Referring Physician: KEMI EEG # [id number] TEST TYPE: URGENT PORTABLE INPATIENT REPORT: AN EEG USING THE INTERNATIONAL TEN-TWENTY SYSTEM OF ELECTRODE PLACEMENT WAS PERFORMED. The waking background is a medium amplitude 9 hertz alpha frequency. The patient appeared to be awake throughout the study. Photic stimulation was unremarkable. A rare sharp and slow wave discharge was noted in a generalized distribution. IMPRESSION: THIS IS AN ABNORMAL STUDY FOR THE FINDINGS OF A SINGLE GENERALIZED EPILEPTIFORM DISCHARGE. CLINICAL CORRELATION IS INDICATED. Content Analyst: FRANK Tool Shaper Set Up Operator: [email or web address]
--- NOTE | 2019-02-14 16:32 | PRG ---
DATE OF SERVICE: 02/14/2019 Ms. Orantes looks and feels much better. She does have a DVT of the femoral vein, and we are switching her from Lovenox to Eliquis. In retrospect, I really do not believe this lady ever had severe sepsis. Job ID: [id number]
[2019-02-14 17:32] VITALS: BP 129/87; TEMP 98.8
[2019-02-14] MEDS ORDERED: Apixaban 5 MG TAB PO SCH (21:00)
--- NOTE | 2019-02-15 01:57 | PQF ---
DOMINIC SUMNER JOSEPH [id number] CLINICAL DOCUMENTATION CLARIFICATION FORM: POST DISCHARGE Addendum to original discharge summary date: ____ Late entry note date: __ DATE: 02/15/19 ATTN: Harpal Alcantar Please exercise your independent, professional judgment in responding to the clarification form. Clinical indicators are provided on the bottom of this form for your review In your clinical opinion based on clinical findings below, can you please identify etiology of Acute Respiratory Failure if due to : Please check appropriate box(s): [ ] Sepsis [ ] Seizure [ X ] Other condition, please specify__Meds given for suspected seizure... she did not have a seizure [ ] Unknown etiology [ ] Unable to determine In addition, please specify: Present on Admission (POA): [ ] Yes [ X ] No [ ] Unable to determine For continuity of documentation, please document condition throughout progress notes and discharge summary. Thank You. CLINICAL INDICATORS - SIGNS / SYMPTOMS / LABS Family Med H&P p1 02/12 Dr Bob 48 year old pt currently intubated, although sedation seems to have worn off as patient alert and able to answer some question Family Med H&P p1 02/12 Dr Bob ED physician states that the patient had a prolonged postictal state, so intubation was performed Family Med H&P p2 02/12 Dr Bob Vital sign: BP147/102, Heart rate 112, Resp rate 28, [id number] RISK FACTORS Family Med H&P p5 02/12 Seizure like activity Family Med H&P p5 02/12 Acute hypoxic Respiratory Failure Pulmonology consult p3 02/13 Cellulitis Pulmonology consult p3 02/13 Severe Sepsis TREATMENTS: JUN 03 Ativan JUN 03 Phenobarbital Respiratory Panel 02/12 Intubated and on Mechanical Ventilator Pulmonology consult 02/12 Harpal Alcantar (This form is maintained as a part of the permanent medical record) 2015 [employer]. All Rights Reserved [email or web address] [not provided] MTDD
--- NOTE | 2019-02-15 21:39 | DIS ---
DATE OF ADMISSION: 02/12/2019 DATE OF DISCHARGE: 02/14/2019 RESIDENT: Hailey Horton DO ADMITTING ATTENDING: Alesha Mccloud MD DISCHARGE ATTENDING: Roberto Carlos Flowers MD CONSULTS: 1. Neurology, Jethro Keller MD; PT/OT and Spiritual Care. 2. Pulmonology, Dr. Holloway. PROCEDURES PERFORMED: Left lower extremity Doppler, which showed a right common femoral DVT which was nonocclusive. Also intubation in the emergency department for a prolonged postictal state. DISCHARGE DIAGNOSES: 1. Sepsis secondary to cellulitis of right lower extremity. 2. Deep venous thrombosis of the right common femoral vein. 3. Seizure-like activity. 4. Chest pain. 5. Hypertension. 6. Hypothyroidism. 7. Asthma. 8. Opioid abuse disorder history. DISCHARGE MEDICATIONS: 1. Eliquis 10 mg p.o. b.i.d. for one week and Eliquis 5 mg p.o. b.i.d. for 3 months. 2. Albuterol sulfate inhaler. 3. QVAR redihaler b.i.d. 4. Suboxone 1 film SL at bedtime. 5. Cefdinir 300 mg p.o. b.i.d. for 7 more days, 15 capsules total. 6. Vitamin D2 of 50,000 units p.o. q.7 days. 7. Gabapentin 1200 mg p.o. t.i.d. 8. Lamotrigine 200 mg p.o. at bedtime. 9. Keppra 500 mg p.o. b.i.d. 10. Levothyroxine 300 mcg p.o. daily. HISTORY OF PRESENT ILLNESS/HOSPITAL COURSE: Ms. Orantes is a 48-year-old female with a history of asthma, hypothyroidism, hypertension, opioid abuse disorder, came into the emergency department after being found down. The patient was presumed to have a seizure and she was intubated in the ER for prolonged postictal state and fear to protect her airway. The patient was then admitted to the ICU for further care. Dr. Keller saw the patient, who recommended Keppra 500 mg p.o. b.i.d. and follow up outpatient. Dr. Holloway also was consulted and thought that patient's presentation is more consistent with sepsis and rigors from what appeared to be cellulitis on her right foot from the recent surgery that she had to repair bunion. The patient's surgery was done about two weeks ago by public interviewer, Dr. Laguna. The patient has been more mobile than normal as well. She also has a history of DVT in the past. The patient was found to have a right common femoral DVT and was started on therapeutic Lovenox. Upon discharge, she will have 7 days of 10 mg b.i.d. Eliquis and then switch to 5 mg b.i.d. of Eliquis for a total of 3 months. I went over this medication thoroughly with patient, as well as instructed the nurse to go over this with her again upon discharge. The patient improved greatly and moved over to the floor from the ICU after being extubated. The patient never had any blood cultures or urine culture. DISPOSITION: The patient was stable upon discharge. DISCHARGE INSTRUCTIONS: 1. Location: Home. 2. Diet: Heart healthy. 3. Activity: As tolerated. 4. Followup: Follow up with Dr. Keller in 2 weeks. Follow up with Dr. Laguna , public interviewer, on 02/17/2019 at 4:00 p.m. for postop appointment as well as suture removal. Follow up with Dr. Shazia Wilson, primary care physician or her PA appointment set up for 02/24/2019 at 1:40 p.m. to go over discharge medications , I called and left a message with Dr. Wilson's staff about the new medications of Keppra and Eliquis. Job ID: [id number] MTDD
--- NOTE | 2019-02-16 14:16 | EKG ---
Test Reason : STAT Blood Pressure : / mmHG Vent. Rate : 121 BPM Atrial Rate : 121 BPM P-R Int : 158 ms QRS Dur : 098 ms QT Int : 324 ms P-R-T Axes : 031 007 025 degrees QTc Int : 460 ms Sinus tachycardia Nonspecific ST abnormality Abnormal ECG When compared with ECG of 05-SEP-1996 12:58, Vent. rate has increased BY 50 BPM Confirmed by DOMINIC JOE (2) on 02/16/2019 2:16:23 PM Referred By: GENIA BROWN Confirmed By:DOMINIC JOE
== END 2019-02-14 17:23 | disposition home or self-care (01) | DRG 862 ==
LOC: ERS 06:38 → CCU 14:17 → T4-A 02-13 12:40
PROVIDERS: ADMIT Emergency Medicine; ATTEND Emergency Medicine
PROC: 5A1935Z Respiratory Ventilation, Less than 24 Consecutive Hours (ICD-10-PCS; principal; 2019-02-12)
PROC: 0BH17EZ Insertion of Endotracheal Airway into Trachea, Via Natural or Artificial Opening (ICD-10-PCS; 2019-02-12)
DX: T81.40XA Infection following a procedure, unspecified, initial encounter (principal); A41.9 Sepsis, unspecified organism; J96.01 Acute respiratory failure with hypoxia; R65.20 Severe sepsis without septic shock; L03.115 Cellulitis of right lower limb; I82.411 Acute embolism and thrombosis of right femoral vein; T81.44XA Sepsis following a procedure, initial encounter; E03.9 Hypothyroidism, unspecified; J45.909 Unspecified asthma, uncomplicated; F11.21 Opioid dependence, in remission; G40.909 Epilepsy, unspecified, not intractable, without status epilepticus; G62.9 Polyneuropathy, unspecified; Y83.8 Other surgical procedures as the cause of abnormal reaction of the patient, or of later complication, without mention of misadventure at the time of the procedure; T42.6X5A Adverse effect of other antiepileptic and sedative-hypnotic drugs, initial encounter; Z86.718 Personal history of other venous thrombosis and embolism; Z79.899 Other long term (current) drug therapy; Z88.0 Allergy status to penicillin; Z79.890 Hormone replacement therapy
CPT/HCPCS: 36415; 70450; 71045; 80053; 80306; 80307; 81003; 81025; 82805; 83036; 83605; 84145; 84146; 84443; 84484; 85025; 85379; 93005; 93010; 93970; 94002; 95816; 95819; J1650; J1953; J2060; J2250; J2405; J2550; J2704; Q0169; Q2009

== ENCOUNTER 2019-04-19 06:11 | Inpatient (IN) | payer BC ==
[2019-04-19 07:02] LABS: Bilirubin Negative (Negative); Blood, Urine Negative (Negative); Clarity Clear (Clear); Glucose, Urine (Dipstick) Normal (Negative); Leukocyte Negative Leu/uL (Negative); Nitrite Negative (Negative); Protein, Urine (Dipstick) 10 mg/dL (Neg-Trace); Urobilinogen Normal mg/dL (Less than 2)
[2019-04-19] MEDS ORDERED: Lorazepam 2 MG/ML VIAL ONE (07:07)
[2019-04-19 07:13] LABS: Amphetamine Not Detected (NotDetected); Barbiturates Screen Not Detected (NotDetected); Benzodiazepine Screen Not Detected (NotDetected); Cocaine Metabolite Screen Not Detected (NotDetected); Medtox Control Line Valid? VALID (VALID); Medtox Reader # READER 4; Methadone Not Detected (NotDetected); Methamphetamine Not Detected (NotDetected); Opiate Screen Not Detected (NotDetected); Oxycodone Screen Not Detected (NotDetected); Phencyclidine (PCP) Not Detected (NotDetected); THC/Cannabinoid Screen Not Detected (NotDetected); Tricyclic Screen Not Detected (NotDetected)
[2019-04-19] MEDS ORDERED: levETIRAcetam 1000 MG/100 ML PREMIX BAG ONE (07:30)
--- NOTE | 2019-04-19 08:37 | CT ---
CT BRAIN WITHOUT CONTRAST: COMPARISON: 02/12/2019. HISTORY: Altered mental status. Multiple falls. TECHNIQUE: Multiple contiguous axial images were obtained in a CT Of the brain without contrast. FINDINGS: The brain is normal in morphology and attenuation without focal lesions or confluent areas of infarct ion. There is no evidence of hydrocephalus, intracranial hemorrhage, or extraaxial fluid collection. The calvarium and overlying soft tissues are unremarkable. The visualized paranasal sinuses and mast oid air cells are well aerated. IMPRESSION: No evidence of acute intracranial abnormality. POS: [facility]
[2019-04-19] MEDS ORDERED: Ondansetron PF 4 MG/2 ML Vial ONE (08:46)
[2019-04-19 09:27] LABS: #Lymphocytes 0.7 thou/uL (1.20-3.40); #Monocytes 0.4 thou/uL (0.11-0.59); #Neutrophils 9.3 thou/uL (1.40-6.50); %Basophils 0.2 % (0.0-1.0); %Eosinophils 0.2 % (0.0-10.0); %Lymphocytes 6.4 % (21.0-51.0); %Monocytes 3.6 % (0.0-10.0); %Neutrophils 89.6 % (42.0-75.0); Hemoglobin 11.9 g/dL (12.0-16.0); Mean Corpuscular HGB CONC 33.4 g/dL (32.0-36.0); Mean Corpuscular Hemoglobin 29.8 pg (27.0-31.0); Mean Platelet Volume 8.5 fL (7.4-10.4); Platelet Count 227 thou/uL (130-400); RBC Distribution Width 12.8 % (11.5-14.5); White Blood Cell (WBC) Count 10.4 thou/uL (4.8-10.8)
[2019-04-19 10:12] LABS: ALT (SGPT) 7 U/L (8-55); AST (SGOT) 14 U/L (5-34); Albumin 4.2 g/dL (3.5-5.0); Alkaline Phosphatase 68 U/L (40-110); Anion Gap 18 mmol/L (10-20); BUN (Urea Nitrogen) 8 mg/dL (7.0-18.7); Bilirubin, Total 0.3 mg/dL (0.2-1.2); Calc. Creatinine Clearance 0 mL/min (70-130); Calcium 9.6 mg/dL (7.8-10.44); Carbon Dioxide 20 mmol/L (22-29); Chloride 107 mmol/L (98-107); Estimated GFR-MDRD 57; Globulin 3.2 g/dL (2.4-3.5); Glucose 115 mg/dL (70-105); Potassium 4.8 mmol/L (3.5-5.1); Protein, Total 7.4 g/dL (6.0-8.3); Sodium 140 mmol/L (136-145)
--- NOTE | 2019-04-19 10:12 | PDOC.FPRHP ---
- History of Present Illness Chief Complaint: fall at home with LOC History of Present Illness: 49 yo F presented to the ED after a fall and LOC at home. Pt's roommate witnessed the fall and stated that the pt struck her head during her fall. EMS stated up was poorly arousable upon arrival but was stable. During her ED admission pt had a head CT showing scalp swelling and bruising. Pt later had an approximately 30 second tonic clonic seizure. She received ativan and keppra loading dose. Mother reports that pt was admitted here 2 months ago for seizures and was intubated. Since then review of pharmacy records show pt has not been filling her keppra prescription and mother does not believe she has followed up with a neurologist. Mother notes that pt first had a seizure in 3rd grade but then none until a couple months ago and today. She has never been told the etiology of her seizures. ED Course: 4mg zofran, 1L NS, 1g Keppra, 2mg Ativan. CT head negative - Allergies/Adverse Reactions Allergies Allergy/AdvReac Type Severity Reaction Status Date / Time Penicillins Allergy Severe Hives Verified 02/12/19 17:21 - Home Medications Medication Instructions Recorded Confirmed Type Albuterol Sulfate [Proair HFA] 2 puff INH Q6HR PRN 02/13/19 04/19/19 History Buprenorphine HCl/Naloxone HCl 1 film SL BID 02/13/19 04/19/19 History [Suboxone SL Film] Ergocalciferol (Vitamin D2) 50,000 unit PO Q7DAYS 02/13/19 04/19/19 History [Vitamin D2] Gabapentin 1,200 mg PO TID 02/13/19 04/19/19 History Lamotrigine [lamoTRIgine] 200 mg PO HS 02/13/19 04/19/19 History Levothyroxine Sodium 300 mcg PO DAILY 02/13/19 04/19/19 History Apixaban [Eliquis] 5 mg PO BID #60 tablet 02/14/19 04/19/19 Rx - History PMHx: seizure disorder, thyroid, chronic back pain w/ TENS unit in place, HTN, asthma PSHx: TENS unit placement, Right bunion surgery, bilateral knee surgery, appendectomy, tonsillectomy, hysterectomy, cholecystectomy, heart surgery ( uncertain what kind; per mother had to do with an artery in her 20's) FHx: Mom and dad- HTN Social: No tobacco use or EtOH. Former drug use. Currently on soboxone. Has been taking it for at least 3 years per mom. Lives with a roommate with an apartment here in [place]. 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 PCP Yvette @ [facility] CODE STATUS: FULL CODE - Review of Systems ROS unobtainable: due to mental status (post-ictal & s/p antiepileptics) - Vital signs BP: 101/80 HR: 78 RR: 13 Tmax: Pox: 93% on RA Wt: 105 kg - Physical Exam -Constitutional: Listless, minimally arousable to sound and pain HEENT: no scleral icterus, MMM -HEENT: Pupils dilated and minimal sluggish reactivity Neck: supple Heart: RRR, normal S1/S2, no murmurs/rubs/gallops Lungs: CTAB, no respiratory distress Abdomen: soft, non-tender, bowel sounds present, no masses/distention Musculoskeletal: normal structure, normal tone -Neurological: Unable to currently assess due level of alertness - will repeat later once medications have worn off Skin: no rash/lesions, capillary refill <2 seconds Heme/Lymphatic: no unusual bruising or bleeding, no purpura -Psychiatric: Unable to assess FMR H&P: Results - Labs Result Diagrams: 04/19/19 09:15 04/19/19 09:15 Lab results: WBC 10.4 thou/uL (4.8-10.8) 04/19/19 09:15 Hgb 11.9 g/dL (12.0-16.0) L 04/19/19 09:15 Hct 35.6 % (36.0-47.0) L 04/19/19 09:15 MCV 89.0 fL (78.0-98.0) 04/19/19 09:15 Plt Count 227 thou/uL (130-400) 04/19/19 09:15 Neutrophils % 89.6 % (42.0-75.0) H 04/19/19 09:15 Urine Ketones Negative mg/dL (Negative) 04/19/19 06:43 Urine Blood Negative (Negative) 04/19/19 06:43 Urine Nitrite Negative (Negative) 04/19/19 06:43 Ur Leukocyte Esterase Negative Brandon/uL (Negative) 04/19/19 06:43 - Radiology Interpretation CT scan - head Status: report reviewed by me (No acute intracranial abnormalities. Focal scalp swelling.) FMR H&P: A/P - Problem List (1) Seizure disorder Current Visit: Yes Status: Acute Code(s): G40.909 - EPILEPSY, UNSP, NOT INTRACTABLE, WITHOUT STATUS EPILEPTICUS (2) Asthma Current Visit: No Status: Acute Code(s): J45.909 - UNSPECIFIED ASTHMA, UNCOMPLICATED (3) HTN (hypertension) Current Visit: No Status: Acute Code(s): I10 - ESSENTIAL (PRIMARY) HYPERTENSION (4) Hypothyroid Current Visit: No Status: Acute Code(s): E03.9 - HYPOTHYROIDISM, UNSPECIFIED (5) Neuropathy Current Visit: No Status: Acute Code(s): G62.9 - POLYNEUROPATHY, UNSPECIFIED (6) Right femoral vein DVT Current Visit: No Status: Acute Code(s): I82.411 - ACUTE EMBOLISM AND THROMBOSIS OF RIGHT FEMORAL VEIN - Plan Seizure Disorder - Witnessed seizure in ED - CT head negative for intracranial abnormality - Loaded 1g keppra - Continue 500 BID - level ordered, pharmacy reports non-compliance - Resume home lamictal, level ordered - Neurology consulted by ED - EEG ordered Right femoral DVT - Supposed to be taking eliquis, has not filled rx - Resume Eliquis 10mg BIDx 1 week, transition to 5mg BID following - No signs of extension of emboli HTN - Reported, not taking anything at home Hypothyroid - TSH level ordered - Resume home levothyroxine Asthma -Resume home meds. Chronic back pain -Resume home Gabapentin once more alert as on a very high dose. h/o opioid abuse -On suboxone BID which she HAS recently filled per pharmacy. Will resume while inpatient. Obesity -Encourage weight loss. Vitamin D deficiency - Will check level with AM labs & resume home meds if needed. Fluids: SL Abx: None Diet: HH, Low Na Code status: FULL DVT PPX: Eliquis GI PPX: None Dispo: Will admit to stroke unit for close monitoring overnight & resume anti- epileptics pending neurology recs & drug levels. FMR H&P: Upper Level - Pertinent history 49YOF with a reported PMH significant for a suspected seizure disorder, HTN, hypothyroidism, a recent LLE DVT (noncompliant with anticoagulation) and a remote h/o opioid drug use who presents to the ER via EMS for a reported witnessed seizure at home. History was obtained from the patients mother who was present at the bedside for the exam as the patient was post-ictal and s/p 2mg of IV Ativan and 1g of Keppra. Per the patients mother the patient was walking to the bathroom this AM and collapsed to the floor & began seizing. 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 Roommate did endorse LOC and patient hitting her head on the floor but no reported bowel or bladder incontinence per mom. Mom unsure if patient is compliant with her meds or if she sees a neurologist but says she was admitted here not too long ago for a seizure. States she had a seizure once when she was like 7YO but was never started on meds at that time & had a complete workup that was negative. Next time she seized was a few months ago before her last hospitalization as far as mom knows. - Pertinent findings Labs/Imaging: Brain CT: NAF UDS: negative REVIEW OF SYSTEMS: Unable to obtain 2/2 AMS from being post-ictal and receiving IV Ativan Vitals: BP: 101/80 HR: 78 RR: 13 Tmax: Pox: 93% on RA Wt: 105 kg PHYSICAL EXAMINATION: General: NAD, drowsy but arousable and answered some questions appropriately. HEENT: normal sclera, oral cavity without lacerations; Pupils fixed & dilated Neck: Supple. Full ROM. Heart/Cardiovascular System: RRR, Cap refill < 3 seconds, no rub, no murmur Lungs/Respiratory System: clear to auscultation bilaterally. No increased work of breathing. Room air. Abdomen/Gastro-Intestinal System: no abdominal tenderness, normal bowel sounds Extremities: Warm extremities. No cyanosis or edema. Neuro: Difficult to assess 2/2 being post-ictal & medicated; will reassess when more alert Psychiatry: See Neuro Skin: No lesions, rashes, or ulcers noted Musculoskeletal: Difficult to assess as noted in neuro exam - Plan Date/Time: 04/19/19 [id number] Erica Edwards, have evaluated this patient and agree with findings/plan as outlined by civil engineering intern resident. Pertinent changes/additions are listed here. 49YOF with a reported PMH significant for a suspected seizure disorder, HTN, hypothyroidism, a recent LLE DVT (noncompliant with anticoagulation) and a remote h/o opioid drug use who presents to the ER via EMS for a reported witnessed seizure at home who suffered a witnessed tonic-clonic seizure in the ED. #Tonic-clonic Seizure -Had a possible seizure at home resulting in her fall and a witnessed tonic- clonic seizure for ~30 seconds in the ED per the ER physician. -Per chart review patient was recently admitted in January for seizure-like activity and was started on PO Keppra by Neurology and was supposed to f/u with them as an outpatient. Will touch base with Neurology today to see if patient ever did & to get further recs. Highly unlikely as phone call to pharmacy revealed patient has not recently filled almost all of her home meds and/or meds she was discharged on in January. Suspect a primary seizure disorder given her history but will r/o any possible organic causes that have not already been evaluated. UDS & bran CT negative. CMP pending. Will also check Mg , phos, TSH, lamictal, & keppra levels & treat any derangements accordingly based on results. -s/p 1g IV Keppra and 2mg Ativan in the ED so will resume normal home meds per d /c summary meds, pharmacy confirmation, & Neuro recs. -Will monitor closely on stroke unit w/ Q4H neurochecks and do a more thorough neuro exam later today once more awake & alert. #h/o recent LLE DVT -Per recent dc summary patient was discharged on Eliquis but only picked up the 10mg BID course. Will start on 5mg BID & continue for 3 months as her recent dc instructions noted. #Hypothyroidism -Has script for 300mcg synthroid at pharmacy that has not been filled since December of 2018. Will check a TSH & dose synthroid accordingly based on TSH & weight. #HTN -Patient never picked up recently ordered script for losartan 100mg QD per pharmacy. Will monitor closely & start antihypertensive therapy PRN based on inpatient BP reads. #Asthma -Resume home meds. #Chronic back pain -Resume home Gabapentin once more alert as on a very high dose. #h/o opioid abuse -On suboxone BID which she HAS recently filled per pharmacy. Will resume while inpatient. #Obesity -Encourage weight loss. #Vitamin D deficiency - Will check level with AM labs & resume home meds if needed. Fluids: SL Abx: None Diet: HH, Low Na Code status: FULL DVT PPX: Eliquis GI PPX: None Dispo: Will admit to stroke unit for close monitoring overnight & resume anti- epileptics pending neurology recs & drug levels. Addendum - Attending - Attending Attestation Date/Time: 04/19/192031 I personally evaluated the patient at 1730 and discussed the management with Dr. Ko/Wojciech. I agree with the History, Examination, Assessment and Plan documented above with any addition or exceptions noted below. At the time of my exam patient was drowsy (from anti-nausea meds) but A&O x 3, neuro without focal deficits. Fall with LOC- ct neg for intracranial path. Seizure- loaded with keppra and now on maintenance dose- questionable compliance - will f/u further tomorrow. Will get neuro input tomorrow as well. h/o recent DVT- non-compliance with anticoag due to cost- will restart NOAC and get CM to help with funding.
[2019-04-19] MEDS ORDERED: Ondansetron PF 4 MG/2 ML Vial IVP PRN (12:21)
[2019-04-19] MEDS ORDERED: Acetaminophen 325 MG TAB PO PRN ×2 (12:21→12:25)
[2019-04-19] MEDS ORDERED: Ondansetron ODT 4 MG TAB SL PRN (12:21)
[2019-04-19] MEDS ORDERED: Lorazepam 2 MG/ML VIAL SLOW IVP PRN (12:25)
[2019-04-19] MEDS ORDERED: PROVENTIL INHALER 6.7 G (200 INHALATIONS) INH PRN (12:25)
[2019-04-19 12:34] VITALS: BMI 38.2
[2019-04-19 13:22] LABS: Magnesium 1.8 mg/dL (1.6-2.6); Phosphorus 2.3 mg/dL (2.3-4.7)
[2019-04-19 13:22] LABS: Acetaminophen Less than 6.0 mcg/mL (10.0-30.0); Alcohol Less than 10 mg/dL (Less than 10); CK (CPK) 149 U/L (29-168); Salicylate Less than 8.0 mg/dL (15.0-30.0)
[2019-04-19] MEDS ORDERED: Ondansetron PF 4 MG/2 ML Vial SLOW IVP SCH (14:45)
[2019-04-19] MEDS: Mometasone 200 MCG HFA INHALER INH SCH (20:20)
[2019-04-19] MEDS ORDERED: Promethazine HCl 25 MG in Sodium Chloride 0.9% 50 ML IVPB PRN (20:22)
[2019-04-19] MEDS ORDERED: Non-Formulary Item 1 EACH (Lamotrigine [Lamotrigine] 200 MG) PO SCH (21:00)
[2019-04-19] MEDS ORDERED: levETIRAcetam 500 MG TAB PO SCH ×2 (21:00)
[2019-04-19] MEDS ORDERED: BECLOMETHASONE DIPROPIONATE 160 MCG IH SCH (21:00)
[2019-04-19] MEDS: Apixaban 5 MG TAB PO SCH (21:57)
[2019-04-19] MEDS: lamoTRIgine 100 MG TAB PO SCH (21:57)
[2019-04-19] MEDS: Buprenorphine 8mg/Naloxone 2mg per 1 FILM SL SCH (22:01)
[2019-04-20 05:05] LABS: Anion Gap 15 mmol/L (10-20); BUN (Urea Nitrogen) 8 mg/dL (7.0-18.7); Calc. Creatinine Clearance 133 mL/min (70-130); Calcium 9.2 mg/dL (7.8-10.44); Carbon Dioxide 26 mmol/L (22-29); Chloride 103 mmol/L (98-107); Estimated GFR-MDRD 70; Glucose 98 mg/dL (70-105); Potassium 3.6 mmol/L (3.5-5.1); Sodium 140 mmol/L (136-145)
--- NOTE | 2019-04-20 05:35 | PDOC.FM ---
- Subjective Subjective: NAEO. No seizures on the floor overnight. Patient failed bedside swallow study so was made strictly NPO overnight but alert and taking sips without issues this AM. Has no complaints this AM. Doesn't remember much from yesterday. But oriented to person, place, time, & situation with just slight confusion on what day it is but knew the year. - Objective MAR Reviewed: Yes Vital Signs & Weight: Vital Signs (12 hours) Temp Pulse Resp BP BP Pulse Ox 04/20/19 04:00 98.2 F 53 L 16 119/61 92 L 04/19/19 23:26 98.9 F 73 16 148/77 H 99 04/19/19 19:27 98.4 F 80 16 148/72 H 97 Weight Weight 104.326 kg Result Diagrams: 04/19/19 09:15 04/20/19 04:47 Phys Exam - Physical Examination Constitutional: NAD HEENT: moist MMs Neck: supple Respiratory: no wheezing, no rales, no rhonchi, clear to auscultation bilateral Cardiovascular: RRR, no significant murmur Gastrointestinal: soft, positive bowel sounds Musculoskeletal: no edema, pulses present Neurological: non-focal, moves all 4 limbs Psychiatric: normal affect, A&O x 3 Skin: no rash, normal turgor Dx/Plan (1) Seizure disorder Code(s): G40.909 - EPILEPSY, UNSP, NOT INTRACTABLE, WITHOUT STATUS EPILEPTICUS Status: Acute (2) Asthma Code(s): J45.909 - UNSPECIFIED ASTHMA, UNCOMPLICATED Status: Acute (3) HTN (hypertension) Code(s): I10 - ESSENTIAL (PRIMARY) HYPERTENSION Status: Acute (4) Hypothyroid Code(s): E03.9 - HYPOTHYROIDISM, UNSPECIFIED Status: Acute (5) Neuropathy Code(s): G62.9 - POLYNEUROPATHY, UNSPECIFIED Status: Acute (6) Right femoral vein DVT Code(s): I82.411 - ACUTE EMBOLISM AND THROMBOSIS OF RIGHT FEMORAL VEIN Status : Acute - Plan Plan: 49YOF with a reported PMH significant for a suspected seizure disorder, HTN, hypothyroidism, a recent RLE DVT (noncompliant with anticoagulation) and a remote h/o opioid drug use who presents to the ER via EMS for a reported witnessed seizure at home who suffered a witnessed tonic-clonic seizure in the ED. #Tonic-clonic Seizure -Had a possible seizure at home resulting in her fall and a witnessed tonic- clonic seizure for ~30 seconds in the ED per the ER physician. -Per chart review patient was recently admitted in January for seizure-like activity and was started on PO Keppra by Neurology and was supposed to f/u with them as an outpatient. Will touch base with Neurology this AM to see if patient ever did & to get further recs. -No seizure activity overnight w/ therapeutic keppra level noted just over 14. Will continue home Keppra & lamictal pending Neuro recs. -Will continue to monitor closely on stroke unit. #h/o recent RLE DVT -Continue Eliquis 10mg BID x 1 week. Then 5mg BID for at least 3 months minimum. #Hypothyroidism - TSH WNLs. Will continue synthroid 300mcg QD. #HTN -Patient never picked up recently ordered script for losartan 100mg QD per pharmacy. Will monitor closely & start antihypertensive therapy PRN based on inpatient BP reads. #Asthma -Resume home meds. #Chronic back pain -Resume home Gabapentin once more alert. #h/o opioid abuse -Will continue home suboxone BID. #Obesity -Encourage weight loss. #Vitamin D deficiency - Very low at 8.5. Will resume Q7 day dosing. Fluids: SL Abx: None Diet: HH, low Na Code status: FULL DVT PPX: Eliquis GI PPX: None Dispo: Will continue close monitoring on stroke unit pending neurology recs today. Addendum - Attending - Attending Attestation Date/Time: 04/20/19 1310 I personally evaluated the patient at 0750 am and discussed the management with Dr. Jeffrey. I agree with the History, Examination, Assessment and Plan documented above with any addition or exceptions noted below. Seizure d/o- unsure of patients compliance with her home meds of keppra. She didn't follow-up with neuro. Appreciate neuro recs. Recurrent DVT- did not take eliquis as prescibed. Restarted. Will work with CM to get meds as cheap as possible for increased compliance.
[2019-04-20] MEDS: Mometasone 200 MCG HFA INHALER INH SCH ×2 (06:54→20:33)
[2019-04-20] MEDS: Levothyroxine 150 MCG TAB PO SCH (07:34)
[2019-04-20] MEDS: levETIRAcetam 500 MG TAB PO SCH ×2 (08:57→20:48)
[2019-04-20] MEDS: Apixaban 5 MG TAB PO SCH ×2 (08:57→20:48)
[2019-04-20] MEDS ORDERED: LEVOTHYROXINE SODIUM 300 MCG PO SCH (09:00)
[2019-04-20] MEDS ORDERED: Ergocalciferol 1.25 MG(50,000 UNITS) CAP PO SCH (09:00)
[2019-04-20] MEDS: Buprenorphine 8mg/Naloxone 2mg per 1 FILM SL SCH ×2 (10:32→20:48)
--- NOTE | 2019-04-20 10:59 | CON ---
DATE OF TELEMEDICINE CONSULTATION: 04/20/2019 CHIEF COMPLAINT: Seizures. HISTORY OF PRESENT ILLNESS: The patient is a 49-year-old lady, who was brought to the ER unresponsive and then she had a subsequent seizure, so the thought process on admission was that she was having multiple seizures. The patient is now awake and is back to baseline. She reports she had seizures as a small child. The last seizure was at about 7 years of age. She has never had seizures into adulthood. Yesterday, was the first time she had a seizure again. She had no recent infection or any other illness. She is on Lamictal from Psychiatry for bipolar disorder. PREVIOUS MEDICAL HISTORY: Bipolar disorder, remote history of seizures, and bronchial asthma. 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 She had back surgery and spinal cord stimulator placement and tonsillectomy. She does not know the details of her spinal cord stimulator. FAMILY HISTORY: Parents are in their 70s. Her father has diabetes, hypertension, and other medical issues. Mother is healthy. The patient has 2 sisters, 48 and 46. They are both healthy as well. She does not have any children. SOCIAL HISTORY: She is a nonsmoker. She does not drink alcohol. 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 REVIEW OF SYSTEMS: PULMONARY: Negative for shortness of breath. GI: Negative for nausea, vomiting, or diarrhea. NEUROLOGIC: Positive for seizures. DERMATOLOGIC: Negative for any skin lesions. HEMATOLOGIC: Negative for bleeding diathesis. GENITOURINARY: Negative for any urinary issues. OPHTHALMOLOGIC: Negative for any vision symptoms. LABORATORY DATA: White count 10.4, hemoglobin 11.9, hematocrit 35.6, platelet count 227. Urine toxicology is negative for any drugs. Chemistry; sodium 140, potassium 3.6, chloride 103, bicarb 26, BUN 8, creatinine 0.86, glucose 98. CPK 149. Prolactin not available. TSH 1.76. ALT 7, AST 14, alkaline phosphatase 68. Her CT of the head was negative for any acute intracranial lesions and this was performed on admission yesterday. PHYSICAL EXAMINATION: VITAL SIGNS: Temperature 98.5, pulse 61, respiratory rate 16, O2 saturations 96 %, blood pressure 127/68. GENERAL APPEARANCE: Slightly obese, well-built, well-nourished lady, who is comfortable. CHEST: Clear vesicular breathing. CARDIOVASCULAR: S1 and S2 heard. No murmurs. ABDOMEN: Soft. NEUROLOGIC: Higher intellectual functions normal. Orientation to time, place, and person. Appropriate conversation. Cranial nerves 2 through 12, normal extraocular movements, and normal sensation of face bilaterally. Pupils 2 mm bilaterally. Normal extraocular movements and tongue midline. Normal elevation of palate. Normal hearing to finger rub bilaterally. Motor examination, bulk normal. Tone normal. Strength 5/5 throughout in iliopsoas, hamstrings, quadriceps, ankle dorsiflexion, plantarflexion bilaterally; deltoid, biceps, triceps, wrist extension and flexion, finger extension and flexion bilaterally. Deep tendon reflexes 2+ throughout in upper and lower extremities. Sensory normal to touch bilaterally and cerebellar normal [id number] and [id number]. IMPRESSION: The patient is a 49-year-old lady with remote history of seizure. She presents currently with history of 2 to 3 seizures at this admission and her examination is normal at this time and we are unable to unfortunately obtain an MRI scan because of her spinal cord stimulator. She is insisting she would like to go home because of fear of a job loss. I discussed at this time diagnosis is most consistent with recurrence of seizure disorder. RECOMMENDATIONS: I discussed with the nurse to speak to the patient and maybe give her a doctor's note, so she can return to work when she is discharged. From a neurology standpoint, she can be discharged tomorrow morning with plans for followup with Dr. Keller. Please call me if you have any further questions. Job ID: [id number] MTDD
[2019-04-20] MEDS: lamoTRIgine 100 MG TAB PO SCH (20:48)
[2019-04-20] MEDS ORDERED: Gabapentin 400 MG CAP PO SCH (21:30)
[2019-04-21 04:53] LABS: Hemoglobin 11.1 g/dL (12.0-16.0); Platelet Count 208 thou/uL (130-400)
[2019-04-21] MEDS: Levothyroxine 150 MCG TAB PO SCH (05:25)
--- NOTE | 2019-04-21 06:24 | PDOC.FM ---
- Subjective Subjective: Doing well this morning. No overnight events. No seizures since admission. She spoke with and reports she will be able to afford Keppra and Eliquis. Denies vision changes, headache. - Objective MAR Reviewed: Yes Vital Signs & Weight: Vital Signs (12 hours) Temp Pulse Resp BP BP Pulse Ox 04/21/19 04:00 98 F 48 L 16 114/62 96 04/21/19 00:00 99.8 F H 58 L 16 133/65 95 04/20/19 20:33 58 L 12 96 04/20/19 20:00 98.4 F 65 16 138/75 98 Weight Weight 104.326 kg Result Diagrams: 04/21/19 04:40 04/20/19 04:47 Phys Exam - Physical Examination Constitutional: NAD HEENT: moist MMs Neck: supple Respiratory: no wheezing, clear to auscultation bilateral Cardiovascular: RRR, no significant murmur Gastrointestinal: soft, non-tender Neurological: non-focal, moves all 4 limbs Psychiatric: normal affect, A&O x 3 Skin: normal turgor Dx/Plan - Plan Plan: 49yo female with pmh of suspected seizure disorder, HTN, hypothyroidism, a recent RLE DVT (noncompliant with anticoagulation) and a remote h/o opioid drug use admitted for seizures Tonic-clonic Seizure - Noncompliant with Keppra, has not followed up outpt with Neurology - Continue seizure precautions - Unable to do MRI due to spine stimulator - Continue home Keppra & lamictal - Neuro consulted, apprec recs - Likely d/c home later today h/o recent RLE DVT - Continue Eliquis 10mg BID x 1 week. Then 5mg BID for at least 3 months minimum Hypothyroidism - Continue synthroid 300mcg QD HTN - Patient never picked up recently ordered script for losartan 100mg QD per pharmacy - Continue to monitor BPs & start antiHTN therapy based on BP reads Asthma - Resume home meds Chronic back pain - Continue home Gabapentin h/o opioid abuse - Continue home suboxone BID Obesity Vitamin D deficiency - Very low at 8.5 - Continue Q7 day dosing Code status: FULL DVT PPX: Eliquis Addendum - Attending - Attending Attestation Date/Time: 04/21/19 1222 I personally evaluated the patient and discussed the management with Dr. Lambert. I agree with the History, Examination, Assessment and Plan documented above with any addition or exceptions noted below. Patient doing well. Undergoing EEG at this time. Likely discharge after completing that. She has rx assistance that has been provided by [facility].
[2019-04-21 07:38] VITALS: BP 132/75; TEMP 98.2
[2019-04-21] MEDS: Mometasone 200 MCG HFA INHALER INH SCH (08:01)
[2019-04-21] MEDS ORDERED: Gabapentin 400 MG CAP PO SCH (09:00)
[2019-04-21] MEDS: Apixaban 5 MG TAB PO SCH (11:15)
[2019-04-21] MEDS: Buprenorphine 8mg/Naloxone 2mg per 1 FILM SL SCH (11:16)
[2019-04-21] MEDS: levETIRAcetam 500 MG TAB PO SCH (11:18)
--- NOTE | 2019-04-21 18:36 | DIS ---
DATE OF ADMISSION: 04/19/2019 DATE OF DISCHARGE: 04/21/2019 RESIDENT: Niesha Lambert, PGY-2. ADMITTING ATTENDING: Gabriella Gutierrez MD DISCHARGE ATTENDING: Macario Dodson MD. CONSULT: Neurology. PROCEDURES: 1. Brain CT on 04/22/2019, no evidence of acute intracranial abnormality. 2. EEG read pending at this time. PRIMARY DIAGNOSES: 1. Tonic clonic seizure. 2. History of recent right lower extremity deep vein thrombosis. SECONDARY DIAGNOSES: 1. Hypothyroidism. 2. Hypertension. 3. Asthma. 4. Chronic back pain. 5. History of opioid abuse. 6. Obesity. 7. Vitamin D deficiency. DISCHARGE MEDICATIONS: 1. Eliquis 10 mg b.i.d. x7 days followed by 5 mg b.i.d. thereafter. 2. Tylenol 650 q.4 hours p.r.n. 3. ProAir two inhalations q.6 hours p.r.n. 4. Nitro one film sublingual b.i.d. 5. Vitamin D2 of 50,000 units q.7 days. 6. Drisdol 1.25 mg q.7 days. 7. Gabapentin 1200 mg t.i.d. 8. Lamotrigine 200 mg at bedtime. 9. Keppra 500 mg b.i.d. 10. Levothyroxine 300 mcg daily. DISCONTINUED MEDICATIONS: QVAR. HISTORY OF PRESENT ILLNESS/HOSPITAL COURSE: Ms. Orantes is a 49-year-old female who presented to the ED after a fall and loss of consciousness at home. She was brought in by EMS and had witnessed 30-second tonic-clonic seizure. In the ER, she received Ativan and Keppra loading doses. Two months ago, she was admitted for seizures as well and was intubated during this time. During this hospitalization, she had a DVT and was discharged on Eliquis, however, had not picked up Keppra or Eliquis, this was due to financial reasons. In the ED, she also received 1 L normal saline and 4 mg of Zofran. Her CT of the head was unremarkable. Neurology was consulted and an EEG was performed which is pending at this time. From a Neurology standpoint, she is cleared for discharge. For her history of right femoral DVT, she is supposed to be taking Eliquis, however, had not been taking it. Case Management was consulted for medication apposition and plans for her to sampler pickup the Eliquis and Keanjanara after discharge. In regard to her hypothyroidism, asthma, chronic back pain, history of opioid abuse, and vitamin D deficiency, she was resumed on home medications and these are stable throughout the course of her hospitalization. Her vitamin D level was checked, and very low at 8.5, this is likely due to noncompliance. Home dose was resumed. DISPOSITION: Stable. DISCHARGE INSTRUCTIONS: 1. Location: Home. 2. Diet: Regular. 3. Activity: No restrictions. 4. Follow up with Dr. Keller, Neurology outpatient within 7 days and PCP, Dr. Shazia Wilson within 7 days. .. Job ID: [id number] [facility] SERVICESIliana
--- NOTE | 2019-04-23 10:40 | EEG ---
Referring Physician: Chai GOMEZ EEG # [id number] TEST TYPE: ROUTINE PORTABLE INPATIENT REPORT: AN EEG USING THE [employer] TEN-TWENTY SYSTEM OF ELECTRODE PLACEMENT WAS PERFORMED. The waking background is a medium amplitude 9 hertz alpha frequency. The patient remained awake throughout the study. Photic stimulation and hyperventilation were unremarkable. No epileptiform features were seen. IMPRESSION: THIS IS A NORMAL AWAKE EEG. Bottom Polisher: FARNK Tunnel Form Placing Supervisor: CAREY STARKEY
[2019-04-26] MEDS ORDERED: Ergocalciferol 1.25 MG(50,000 UNITS) CAP PO SCH ×2 (09:00)
== END 2019-04-21 13:05 | disposition home or self-care (01) | DRG 101 ==
LOC: ERS 06:11 → 2SE 09:51
PROVIDERS: ADMIT Family Medicine; ATTEND Family Medicine
DX: G40.401 Other generalized epilepsy and epileptic syndromes, not intractable, with status epilepticus (principal); E03.9 Hypothyroidism, unspecified; I10 Essential (primary) hypertension; J45.909 Unspecified asthma, uncomplicated; G89.29 Other chronic pain; M54.9 Dorsalgia, unspecified; E66.9 Obesity, unspecified; E55.9 Vitamin D deficiency, unspecified; F31.9 Bipolar disorder, unspecified; Z86.718 Personal history of other venous thrombosis and embolism; Z68.37 Body mass index [BMI] 37.0-37.9, adult; Z88.0 Allergy status to penicillin; Z79.899 Other long term (current) drug therapy; Z79.890 Hormone replacement therapy; Z79.01 Long term (current) use of anticoagulants; Z90.49 Acquired absence of other specified parts of digestive tract; Z90.710 Acquired absence of both cervix and uterus; Z91.14 Patient's other noncompliance with medication regimen; Z87.74 Personal history of (corrected) congenital malformations of heart and circulatory system
CPT/HCPCS: 36415; 36416; 51701; 70450; 80048; 80053; 80175; 80177; 80306; 80307; 81003; 82306; 82550; 83735; 84100; 84443; 84484; 85014; 85018; 85025; 85049; 93005; 94664; 95816; 95819; 96361; 96365; 96372; 96375; A4353; J1953; J2060; J2405; J2550

== ENCOUNTER 2020-06-10 15:50 | Emergency (ER) | payer BC ==
[2020-06-10 17:59] LABS: #Basophils 0.1 thou/uL (0.0-0.2); #Eosinphils 0.1 thou/uL (0.0-0.7); #Lymphocytes 1.7 thou/uL (1.20-3.40); #Monocytes 0.4 thou/uL (0.11-0.59); #Neutrophils 3.9 thou/uL (1.40-6.50); %Basophils 0.8 % (0.0-1.0); %Eosinophils 1.6 % (0.0-10.0); %Lymphocytes 27.8 % (21.0-51.0); %Monocytes 5.9 % (0.0-10.0); %Neutrophils 63.9 % (42.0-75.0); Hemoglobin 12.4 g/dL (12.0-16.0); Mean Corpuscular HGB CONC 33.7 g/dL (32.0-36.0); Mean Corpuscular Hemoglobin 31.3 pg (27.0-31.0); Mean Corpuscular Volume 92.8 fL (78.0-98.0); Mean Platelet Volume 7.7 fL (7.4-10.4); Platelet Count 273 thou/uL (130-400); RBC Distribution Width 12.5 % (11.5-14.5); Red Blood Cell (RBC) Count 3.97 mill/uL (4.20-5.40); White Blood Cell (WBC) Count 6.1 thou/uL (4.8-10.8)
[2020-06-10] MEDS ORDERED: Ketorolac Tromethamine 30 MG/ML VIAL ONE (18:18)
[2020-06-10] MEDS ORDERED: Acetaminophen 500 MG TAB ONE (18:18)
[2020-06-10 18:24] LABS: ALT (SGPT) 10 U/L (8-55); AST (SGOT) 22 U/L (5-34); Albumin 4.7 g/dL (3.5-5.0); Alkaline Phosphatase 83 U/L (40-110); Anion Gap 12 mmol/L (10-20); BUN (Urea Nitrogen) 13 mg/dL (9.8-20.1); Bilirubin, Total 0.2 mg/dL (0.2-1.2); CK (CPK) 706 U/L (29-168); Calc. Creatinine Clearance 0 mL/min (70-130); Calcium 9.7 mg/dL (7.8-10.44); Carbon Dioxide 30 mmol/L (22-29); Chloride 101 mmol/L (98-107); Globulin 3.5 g/dL (2.4-3.5); Glucose 94 mg/dL (70-105); Lipase 13 U/L (8-78); Protein, Total 8.2 g/dL (6.0-8.3); Sodium 139 mmol/L (136-145)
[2020-06-10] MEDS ORDERED: Gabapentin 300 MG CAP PO SCH (18:30)
== END 2020-06-10 19:41 | disposition home or self-care (01) ==
LOC: ERS 15:50
DX: M25.512 Pain in left shoulder (principal)
CPT/HCPCS: 36415; 71045; 80053; 82550; 83690; 84484; 85025; 93005; 96372; J1885

== ENCOUNTER 2020-09-04 11:46 | Emergency (ER) | payer BC | END 2020-09-04 14:00 | disposition home or self-care (01) | LOC: ERS 11:46 | DX: M54.41 Lumbago with sciatica, right side (principal); J45.909 Unspecified asthma, uncomplicated; Z79.899 Other long term (current) drug therapy | CPT/HCPCS: 99281 ==

== ENCOUNTER 2020-11-18 19:41 | Observation (INO) | payer SELFPAY ==
[2020-11-18 20:38] LABS: #Lymphocytes 3.1 thou/uL (1.20-3.40); #Monocytes 1.2 thou/uL (0.11-0.59); #Neutrophils 8.4 thou/uL (1.40-6.50); %Basophils 0.2 % (0.0-1.0); %Eosinophils 0.1 % (0.0-10.0); %Lymphocytes 24.5 % (21.0-51.0); %Monocytes 9.1 % (0.0-10.0); %Neutrophils 66.1 % (42.0-75.0); Hemoglobin 15.6 g/dL (12.0-16.0); Mean Corpuscular HGB CONC 34.8 g/dL (32.0-36.0); Mean Corpuscular Hemoglobin 32.1 pg (27.0-31.0); Mean Corpuscular Volume 92.2 fL (78.0-98.0); Platelet Count 538 thou/uL (130-400); RBC Distribution Width 12.2 % (11.5-14.5); Red Blood Cell (RBC) Count 4.87 mill/uL (4.20-5.40); White Blood Cell (WBC) Count 12.7 thou/uL (4.8-10.8)
[2020-11-18 20:59] LABS: ALT (SGPT) 23 U/L (8-55); AST (SGOT) 27 U/L (5-34); Alkaline Phosphatase 64 U/L (40-110); Anion Gap 20 mmol/L (10-20); BUN (Urea Nitrogen) 27 mg/dL (9.8-20.1); Bilirubin, Total 0.9 mg/dL (0.2-1.2); Calc. Creatinine Clearance 0 mL/min (70-130); Calcium 10.5 mg/dL (7.8-10.44); Carbon Dioxide 25 mmol/L (22-29); Chloride 93 mmol/L (98-107); Globulin 3.7 g/dL (2.4-3.5); Glucose 102 mg/dL (70-105); Lipase 21 U/L (8-78); Potassium 3.4 mmol/L (3.5-5.1); Protein, Total 8.7 g/dL (6.0-8.3); Sodium 135 mmol/L (136-145)
[2020-11-18 21:20] LABS: CKMB 2.9 ng/mL (0-6.6)
[2020-11-18] MEDS ORDERED: Acetaminophen 325 MG TAB PO PRN (22:28)
[2020-11-18] MEDS ORDERED: Morphine 4 MG/ML VIAL ONE (22:35)
[2020-11-18] MEDS ORDERED: Aspirin Chewable 81 MG TAB ONE (22:36)
[2020-11-18] MEDS ORDERED: Ondansetron PF 4 MG/2 ML Vial ONE (22:36)
[2020-11-18] MEDS ORDERED: Nitroglycerin 2% Ointment 1 INCH/1 GM Packet ONE (22:36)
[2020-11-18] MEDS ORDERED: Nitroglycerin 0.4 MG TAB (25 Tab Bottle) SL PRN (22:43)
[2020-11-18 22:52] LABS: Hemoglobin A1c 5.5 % (4.0-6.0)
[2020-11-18] MEDS ORDERED: Enoxaparin Sodium 40 MG/0.4 ML SYRINGE SC SCH (23:00)
[2020-11-18 23:03] LABS: Cardiac Risk 3.6 (Less than 4.5); Magnesium 2.2 mg/dL (1.6-2.6); Phosphorus 2.8 mg/dL (2.3-4.7)
[2020-11-19] MEDS ORDERED: Potassium Chloride 20 MEQ TAB PO SCH (01:15)
[2020-11-19 01:45] LABS: SARS-CoV-2 NAA Rapid Test Not Detected (NotDetected)
[2020-11-19] MEDS ORDERED: Enoxaparin Sodium 40 MG/0.4 ML SYRINGE ONE (02:10)
[2020-11-19] MEDS ORDERED: Mag-Al 1200 mg/1200 mg/30 ML UDCUP ONE (02:10)
[2020-11-19] MEDS ORDERED: Lidocaine 1% PF 5 ML VIAL ONE (02:10)
[2020-11-19] MEDS ORDERED: Potassium Chloride 20 MEQ TAB ONE (02:10)
[2020-11-19] MEDS ORDERED: Lidocaine Viscous Sol 2% 15 ml UD Cup ONE (02:11)
[2020-11-19 02:20] LABS: Troponin I 0.228 ng/mL (< 0.028)
[2020-11-19] MEDS ORDERED: Lidocaine 2% Viscous Solution 10 ML, Aluminum & Magnesium Hydroxide 30 ML SSW SCH (02:30)
[2020-11-19] MEDS ORDERED: Heparin 10,000 UNITS/ 10 ML VIAL SLOW IVP SCH (02:45)
[2020-11-19] MEDS ORDERED: Heparin 25,000 units/D5W 500 ML IVPB SCH (03:00)
[2020-11-19 04:58] LABS: Bacteria/HPF None Seen HPF (None Seen); Squamous Epithelial 0-3 HPF (0-3)
[2020-11-19 05:12] LABS: Amphetamine Not Detected (NotDetected); Barbiturates Screen Not Detected (NotDetected); Benzodiazepine Screen Not Detected (NotDetected); Cocaine Metabolite Screen Not Detected (NotDetected); Methadone Not Detected (NotDetected); Methamphetamine Not Detected (NotDetected); Opiate Screen Detected (NotDetected); Oxycodone Screen Not Detected (NotDetected); Phencyclidine (PCP) Not Detected (NotDetected); THC/Cannabinoid Screen Not Detected (NotDetected); Tricyclic Screen Not Detected (NotDetected)
[2020-11-19 05:38] LABS: #Neutrophils 5.7 thou/uL (1.40-6.50)
[2020-11-19 05:39] LABS: #Basophils 0.1 thou/uL (0.0-0.2); #Lymphocytes 2.8 thou/uL (1.20-3.40); %Eosinophils 0.3 % (0.0-10.0); %Lymphocytes 29.2 % (21.0-51.0); %Monocytes 10.3 % (0.0-10.0); %Neutrophils 59.3 % (42.0-75.0); Hemoglobin 14.5 g/dL (12.0-16.0); Mean Corpuscular HGB CONC 33.8 g/dL (32.0-36.0); Mean Corpuscular Hemoglobin 31.5 pg (27.0-31.0); Mean Corpuscular Volume 93.2 fL (78.0-98.0); Mean Platelet Volume 7.2 fL (7.4-10.4); Platelet Count 403 thou/uL (130-400); RBC Distribution Width 12.3 % (11.5-14.5); White Blood Cell (WBC) Count 9.6 thou/uL (4.8-10.8)
[2020-11-19 05:45] LABS: ALT (SGPT) 22 U/L (8-55); AST (SGOT) 26 U/L (5-34); Albumin 4.4 g/dL (3.5-5.0); Alkaline Phosphatase 54 U/L (40-110); Anion Gap 17 mmol/L (10-20); BUN (Urea Nitrogen) 28 mg/dL (9.8-20.1); Bilirubin, Total 0.8 mg/dL (0.2-1.2); Calc. Creatinine Clearance 0 mL/min (70-130); Calcium 9.3 mg/dL (7.8-10.44); Carbon Dioxide 25 mmol/L (22-29); Chloride 96 mmol/L (98-107); Globulin 2.9 g/dL (2.4-3.5); Glucose 100 mg/dL (70-105); Potassium 3.5 mmol/L (3.5-5.1); Protein, Total 7.3 g/dL (6.0-8.3); Sodium 134 mmol/L (136-145)
[2020-11-19 05:46] LABS: Troponin I 0.213 ng/mL (< 0.028)
[2020-11-19] MEDS ORDERED: Aspirin Chewable 81 MG TAB ONE (08:12)
[2020-11-19] MEDS ORDERED: Acetaminophen 325 MG TAB ONE (08:12)
[2020-11-19] MEDS ORDERED: Aspirin Chewable 81 MG TAB PO SCH (09:00)
[2020-11-19] MEDS ORDERED: Enoxaparin Sodium 40 MG/0.4 ML SYRINGE SC SCH (09:00)
[2020-11-19] MEDS ORDERED: Regadenoson 0.4 MG/5 ML SYRINGE ONE (10:04)
[2020-11-19] MEDS ORDERED: Iopamidol-370 76% 500 ML 1 ML ONE ×2 (10:22→10:23)
== END 2020-11-19 15:45 | disposition home or self-care (01) ==
LOC: ERS 19:41 → ERHOLD 22:28
PROVIDERS: ADMIT Emergency Medicine; ATTEND Emergency Medicine
DX: R07.89 Other chest pain (principal); R00.0 Tachycardia, unspecified; D72.829 Elevated white blood cell count, unspecified; E87.6 Hypokalemia; J45.909 Unspecified asthma, uncomplicated; K21.9 Gastro-esophageal reflux disease without esophagitis; F11.11 Opioid abuse, in remission; I10 Essential (primary) hypertension; E03.9 Hypothyroidism, unspecified; M54.30 Sciatica, unspecified side; E55.9 Vitamin D deficiency, unspecified; G40.909 Epilepsy, unspecified, not intractable, without status epilepticus; Z76.5 Malingerer [conscious simulation]; Z86.718 Personal history of other venous thrombosis and embolism; Z79.01 Long term (current) use of anticoagulants; Z79.899 Other long term (current) drug therapy; Z88.0 Allergy status to penicillin; Z20.822 Contact with and (suspected) exposure to COVID-19
CPT/HCPCS: 36415; 71045; 71275; 78452; 80053; 80061; 80306; 81015; 82553; 83036; 83690; 83735; 84100; 84443; 84484; 85025; 85379; 85730; 93005; 93010; 93017; 96372; 96374; 96375; A9500; G0378; J1644; J1650; J2270; J2405; J2785; Q9967; U0002

== ENCOUNTER 2020-12-13 11:47 | Emergency (ER) | payer SELFPAY ==
[2020-12-13 14:01] LABS: Bacteria/HPF None Seen HPF (None Seen); Bilirubin Negative (Negative); Blood, Urine 3+ (Negative); Clarity Turbid (Clear); Glucose, Urine (Dipstick) Normal (Negative); Ketone, Urine Trace mg/dL (Negative); Leukocyte Negative Leu/uL (Negative); Nitrite Negative (Negative); Protein, Urine (Dipstick) 30 mg/dL (Neg-Trace); RBC/HPF Greater than 50 HPF (0-3); Specific Gravity, Urine 1.031 (1.002-1.036); Squamous Epithelial 0-3 HPF (0-3); Urobilinogen Normal mg/dL (Less than 2); WBC/HPF 0-3 HPF (0-3); pH, Urine 5.5 (5.0-9.0)
[2020-12-13 14:31] LABS: #Eosinphils 0.1 thou/uL (0.0-0.7); #Lymphocytes 1.6 thou/uL (1.20-3.40); #Monocytes 0.3 thou/uL (0.11-0.59); %Basophils 0.4 % (0.0-1.0); %Lymphocytes 32.6 % (21.0-51.0); %Monocytes 6.7 % (0.0-10.0); %Neutrophils 59.3 % (42.0-75.0); Hemoglobin 12.5 g/dL (12.0-16.0); Mean Corpuscular HGB CONC 32.6 g/dL (32.0-36.0); Mean Corpuscular Hemoglobin 30.7 pg (27.0-31.0); Mean Corpuscular Volume 94.1 fL (78.0-98.0); Mean Platelet Volume 7.1 fL (7.4-10.4); Platelet Count 346 thou/uL (130-400); RBC Distribution Width 11.9 % (11.5-14.5); Red Blood Cell (RBC) Count 4.06 mill/uL (4.20-5.40)
[2020-12-13 14:58] LABS: ALT (SGPT) 14 U/L (8-55); AST (SGOT) 16 U/L (5-34); Albumin 4.6 g/dL (3.5-5.0); Alkaline Phosphatase 54 U/L (40-110); Anion Gap 15 mmol/L (10-20); BUN (Urea Nitrogen) 10 mg/dL (9.8-20.1); Bilirubin, Total 0.5 mg/dL (0.2-1.2); Calc. Creatinine Clearance 0 mL/min (70-130); Calcium 10.2 mg/dL (7.8-10.44); Carbon Dioxide 26 mmol/L (22-29); Chloride 99 mmol/L (98-107); Globulin 2.9 g/dL (2.4-3.5); Glucose 98 mg/dL (70-105); Lipase 5 U/L (8-78); Potassium 4.1 mmol/L (3.5-5.1); Protein, Total 7.5 g/dL (6.0-8.3); Sodium 136 mmol/L (136-145)
[2020-12-13] MEDS ORDERED: Ondansetron ODT 4 MG TAB ONE (16:23)
[2020-12-13] MEDS ORDERED: Acetaminophen 500 MG TAB ONE (16:23)
== END 2020-12-13 17:08 | disposition home or self-care (01) ==
LOC: ERS 11:47
DX: R10.9 Unspecified abdominal pain (principal); R31.9 Hematuria, unspecified; R11.0 Nausea; J45.909 Unspecified asthma, uncomplicated
CPT/HCPCS: 36415; 74176; 80053; 81003; 81015; 83690; 85025; 87086; Q0162

== ENCOUNTER 2020-12-20 11:40 | Emergency (ER) | payer SELFPAY ==
[~2020-12-20 11:40] MED LIST: Iopamidol-370 76% 500 ML 1 ML ONE
[2020-12-20 13:15] LABS: #Eosinphils 0.1 thou/uL (0.0-0.7); #Lymphocytes 1.5 thou/uL (1.20-3.40); #Monocytes 0.4 thou/uL (0.11-0.59); #Neutrophils 3.5 thou/uL (1.40-6.50); %Basophils 0.3 % (0.0-1.0); %Eosinophils 2.5 % (0.0-10.0); %Monocytes 7.6 % (0.0-10.0); %Neutrophils 62.6 % (42.0-75.0); Hemoglobin 12.4 g/dL (12.0-16.0); Mean Corpuscular HGB CONC 32.5 g/dL (32.0-36.0); Mean Corpuscular Hemoglobin 31.3 pg (27.0-31.0); Mean Corpuscular Volume 96.4 fL (78.0-98.0); Mean Platelet Volume 7.5 fL (7.4-10.4); Platelet Count 296 thou/uL (130-400); RBC Distribution Width 11.7 % (11.5-14.5); Red Blood Cell (RBC) Count 3.98 mill/uL (4.20-5.40); White Blood Cell (WBC) Count 5.6 thou/uL (4.8-10.8)
[2020-12-20 13:35] LABS: ALT (SGPT) 13 U/L (8-55); AST (SGOT) 14 U/L (5-34); Albumin 4.1 g/dL (3.5-5.0); Alkaline Phosphatase 63 U/L (40-110); Anion Gap 11 mmol/L (10-20); BUN (Urea Nitrogen) 11 mg/dL (9.8-20.1); Bilirubin, Total 0.3 mg/dL (0.2-1.2); Calc. Creatinine Clearance 0 mL/min (70-130); Calcium 9.6 mg/dL (7.8-10.44); Carbon Dioxide 30 mmol/L (22-29); Chloride 100 mmol/L (98-107); Globulin 2.7 g/dL (2.4-3.5); Glucose 98 mg/dL (70-105); Lipase 7 U/L (8-78); Potassium 4.1 mmol/L (3.5-5.1); Protein, Total 6.8 g/dL (6.0-8.3); Sodium 137 mmol/L (136-145)
[2020-12-20] MEDS ORDERED: Ondansetron PF 4 MG/2 ML Vial ONE (14:04)
[2020-12-20] MEDS ORDERED: Morphine 4 MG/ML VIAL ONE (14:04)
[2020-12-20 14:18] LABS: Bacteria/HPF None Seen HPF (None Seen); Bilirubin Negative (Negative); Blood, Urine 3+ (Negative); Clarity Clear (Clear); Glucose, Urine (Dipstick) Normal (Negative); Ketone, Urine Negative (Negative); Leukocyte Negative Leu/uL (Negative); Nitrite Negative (Negative); Protein, Urine (Dipstick) 10 mg/dL (Neg-Trace); RBC/HPF Greater than 50 HPF (0-3); Specific Gravity, Urine 1.024 (1.002-1.036); Squamous Epithelial 0-3 HPF (0-3); Urobilinogen Normal mg/dL (Less than 2); WBC/HPF None Seen HPF (0-3); pH, Urine 5.5 (5.0-9.0)
== END 2020-12-20 16:52 | disposition home or self-care (01) ==
LOC: ERS 11:40
DX: R10.32 Left lower quadrant pain (principal); R30.0 Dysuria; R31.9 Hematuria, unspecified; J45.909 Unspecified asthma, uncomplicated
CPT/HCPCS: 36415; 74177; 80053; 81003; 81015; 83690; 85025; 96374; 96375; J2270; J2405; Q9967

== ENCOUNTER 2021-09-26 14:26 | Emergency (ER) | payer SELFPAY | END 2021-09-26 15:57 | disposition home or self-care (01) | LOC: ERS 14:26 | DX: S43.421A Sprain of right rotator cuff capsule, initial encounter (principal); X50.9XXA Other and unspecified overexertion or strenuous movements or postures, initial encounter ==